=== PATIENT | male | born 1955 ===

== ENCOUNTER 2019-01-17 15:40 | Inpatient (IN) | payer MEDICARE ==
[2019-01-17] MEDS ORDERED: Aspirin 325 mg EC Tablets PO STA (15:58)
[2019-01-17 16:20] LABS: BASO # 0.1 K/uL (0.0-0.2); BASO % 0.7 % (0.0-2.0); EOS # 0.1 K/uL (0.0-0.7); LYMPH # 1.3 K/uL (1.0-4.3); LYMPH % 10.9 % (20.0-40.0); MEAN CELL VOLUME 92.6 fL (80.0-94.0); MEAN CORPUSCULAR HGB CONC 32.4 g/dL (33.0-37.0); MEAN PLATELET VOLUME 8.1 fL (7.2-11.7); MONO # 0.9 K/uL (0.0-0.8); MONO % 7.6 % (0.0-10.0); NEUT # 9.3 K/uL (1.8-7.0); NEUT % 79.8 % (50.0-75.0); NRBC % 0.1 % (0.0-2.0); RBC 4.66 Mil/uL (4.40-5.90); RED CELL DISTRIBUTION WIDTH 15.5 % (11.5-14.5); WHITE BLOOD COUNT 11.6 K/uL (4.8-10.8)
[2019-01-17] MEDS ORDERED: Aspirin 325 mg EC Tablets PO ONE (16:24)
[2019-01-17 16:28] LABS: INR 1.1; PROTHROMBIN TIME 11.5 SECONDS (9.7-12.2)
[2019-01-17 16:32] LABS: ALB/GLOB RATIO 1.3 (1.0-2.1); ALBUMIN 4.3 g/dL (3.5-5.0); BLOOD UREA NITROGEN 24 mg/dL (9-20); CALCIUM 9.2 mg/dl (8.6-10.4); GFR NON-AFRICAN AMERICAN > 60
[2019-01-17 16:33] LABS: ALT/SGPT 28 U/L (21-72); AST/SGOT 32 U/L (17-59)
--- NOTE | 2019-01-17 16:38 | C.PDOC ---
History Of Present Illness Pt is a 63 yr old white male cigarette smoker with a PMH of CAD, acute GA (with stents), DM, HTN, obesity who presents to the ED today c/o left sided chest pain (pressure-like in nature) that started 1 hr prior to arrival to the ED. EMS gave patient SL nitro (and pt also had 325 mg aspirin) and the chest pain went away after receiving the nitroglycerin. The chest pain lasted for 1 hour but is now gone. Pt had an acute GA in May 2018 and had stent placed. In September 2018, patient had another cardiac stent placed. Last episode of chest pain was 2 wks ago and states he had a cardiac cath at [facility]. No SOB today, and no N/V. Patient is usually followed at [facility] by paper cone grader Dr. Song Calderon. I have left a message with his answering service (at 4:36 PM) to call me. Patient also seen in [facility] ED yesterday for bilateral leg pain/swelling and discharged home with a diagnosis of venous insufficiency. PMD: Dr. Song Calderon - [employer] - and cell phone: Time Seen by Provider: 01/17/19 15:58 Chief Complaint (Nursing): Chest Pain Past Medical History Vital Signs: Last Vital Signs Temp 98.3 F 01/17/19 15:45 Pulse 114 H 01/17/19 15:45 Resp 22 01/17/19 15:45 BP 155/65 H 01/17/19 15:45 Pulse Ox 94 L 01/17/19 15:45 Primary Care Provider: Song Calderon III - Medical History PMH: HTN, Peripheral Edema Family History: States: Diabetes - Social History Hx Tobacco Use: Yes Hx Alcohol Use: No Hx Substance Use: No Physical Exam - Physical Exam Appears: Well, Non-toxic, Other (Obese) Skin: Normal Color Head: Atraumatic Eye(s): bilateral: Normal Inspection Nose: Normal Tongue: Normal Appearing Throat: Normal Neck: Normal, Normal ROM Lymphatic: Deferred Chest: Symmetrical Cardiovascular: Rhythm Regular Respiratory: No Accessory Muscle Use, Rhonchi (noted at left lung base), No Wheezing Gastrointestinal/Abdominal: Bowel Sounds, Soft Rectal: Deferred Back: Normal Inspection Male Genital: Normal Inspection Extremity: Bilateral: Other ((+) pitting edema to lower ext bilaterally) Neurological/Psych: Oriented x3, Normal Motor, Normal Sensation ED Course And Treatment - Laboratory Results Result Diagrams: 01/17/19 16:17 01/17/19 16:17 Lab Results: PT 11.5 SECONDS (9.7-12.2) 01/17/19 16:17 INR 1.1 01/17/19 16:17 APTT 32.0 SECONDS (21-34) 01/17/19 16:17 O2 Sat by Pulse Oximetry: 94 Medical Decision Making Medical Decision Making: Initial Impression: Chest pain consider ACS Initial Plan: Will check labs, check EKG and try to reach pt's paper cone grader Dr. Song Calderon Progress Note(s): I discussed the case with his private paper cone grader Dr. Song Calderon (cell phone [phone]). He knows this patient very well. He has a stent in his left main and also in circumflex artery. Patient was being set up for brachi-therapy at [facility] but their cardiac cath was normal. Last cardiac cath approx 2 wks ago was ok. He states he gets admitted frequently for chest pain and always makes troponins. He states that the early marginal branch is "pi nched" on the cardiac cath and thinks that this is the source of his positive troponin. I verbally described his EKG and he states that his EKG has been like this for some time now. I informed him that his troponin today is 0.1610 and he states that is the lowest it has been on him in a while. He recommends giving Brillanta (does not think heparin is necessary) and admitting him for further cardiac monitoring. He states our physicians can feel free to call him with any questions as he knows this pt very well. Admission endorsed to Dr. Sami Latif. 6:10 PM - [employer] Dr. Timmy Willard is at bedside evaluating the patient. Disposition Counseled Patient/Family Regarding: Studies Performed, Diagnosis - Disposition Disposition: HOSPITALIZED Disposition Time: 17:00 Condition: FAIR - Clinical Impression Clinical Impression: Chest pain, Elevated troponin, Obesity, Diabetes Decision To Admit - Pt Status Changed To: Hospital Disposition Of: Inpatient - Admit Certification Admit to Inpatient:: After my assessment, the patient will require hospitalization for at least two midnights. This is because of the severity of symptoms shown, intensity of services needed, and/or the medical risk in this patient being treated as an outpatient. - InPatient: Physician Admission Certification: I certify that this patient requires 2 or more midnights of care for the following reason:: Patient with abnormal EKG and making positive cardiac enzymes. - . Bed Request Type: Telemetry Admitting Physician: Sami Latif Patient Diagnosis: Chest pain, Elevated troponin, Obesity, Diabetes
[2019-01-17 16:47] LABS: B-TYPE NATRIURETIC PEPTIDE 857 pg/mL (0-900)
--- NOTE | 2019-01-17 17:09 | RAD ---
Date of service: 01/17/2019 PROCEDURE: CHEST RADIOGRAPH, 1 VIEW HISTORY: chest pain COMPARISON: None available. FINDINGS: LUNGS: Clear. PLEURA: No pneumothorax or pleural fluid seen. CARDIOVASCULAR: No aortic atherosclerotic calcification present. Normal. OSSEOUS STRUCTURES: No significant abnormalities. VISUALIZED UPPER ABDOMEN: Normal. OTHER FINDINGS: None. IMPRESSION: No active disease.
--- NOTE | 2019-01-17 17:43 | CP.PCM.HP ---
History of Present Illness - History of Present Illness History of Present Illness: H&P for hospitalist Dr. Latif HPI: 63 year old male with PMhx of CAD w/ stents (May 2018 & September 2018), HTN, DM, arthritis presents to ED for chest pain. Pt states he was sitting this morning when he developed pins/needle like chest pain on left side that radiated to left arm, rated 5/10, denies nausea, vomiting, SOB at that time. Pt called EMS, had 1 sublingual nitro with resolution of chest pain. Per ED note and pt cardioloist at [facility] Dr. Calderon, patient has been in several EDs for similar chest pain over the past year with elevated troponins, significantly more elevated than 0.16 currently and has had clean coronaries several times. At time of examination pt reports resolution of chest pain and just states for the last two days hes been just feeling sleep majority of the time. Pt reports compliance with medications and denies illicet drug use. Pt reports normal sleep test a few years. Denies recent travel, reports having a cold like symptoms 2 weeks ago. ROS: Denies headaches, vision changes, SOB, abdominal pain, fevers, chills, diarrhea, constipation, trouble/burining on urination; b/l le swelling PMD: [place] (does not see doctor regularly) PMhx: CAD w/ stents (May 2018 & September 2018), HTN, DM, arthritis Meds: Brilinta 90 BID, aspirin 81 mg daily, lasix 40 mg Po daily, imdur 120 daily, metoprolol tartrate 100 bid, nitroglycerin 0.4sl, ranexa 100 mg daily PShx: CAD w/ 2 sents Allergies: NKDA FHx: Father 76, mother at 83 (unknown causes) SHx: Smokes 5-6 cigarettes/ day for 2 years, denies illicit drug use, denies ETOH Present on Admission - Present on Admission Any Indicators Present on Admission: No History of DVT/PE: No History of Uncontrolled Diabetes: No Urinary Catheter: No Decubitus Ulcer Present: No Review of Systems - Constitutional Constitutional: Daytime Sleepiness. absent: Chills, Headache, Weight Gain, Weight Loss - EENT Eyes: absent: Blurred Vision, Change in Vision - Cardiovascular Cardiovascular: absent: Chest Pain, Chest Pain at Rest, Dyspnea - Respiratory Respiratory: absent: Cough, Dyspnea, Dyspnea on Exertion - Gastrointestinal Gastrointestinal: absent: Bloating, Constipation, Diarrhea - Genitourinary Genitourinary: absent: Change in Urinary Stream, Difficulty Urinating - Musculoskeletal Musculoskeletal: absent: Arthralgias, Joint Swelling - Integumentary Integumentary: Swelling Additional comments: b/l lower extremity swelling - Neurological Neurological: absent: Disequilibrium, Headaches - Psychiatric Psychiatric: absent: Anxiety, Change in Appetite - Endocrine Endocrine: absent: Change in Body Appearance, Deepening of Voice - Hematologic/Lymphatic Hematologic: absent: As Per HPI, Easy Bleeding, Easy Bruising Past Patient History - Past Social History Smoking Status: Current Some Days Smoker - CARDIAC Hx Hypertension: Yes Hx Peripheral Edema: Yes - PSYCHIATRIC Hx Substance Use: No Meds Allergies/Adverse Reactions: Allergies Allergy/AdvReac Type Severity Reaction Status Date / Time No Known Allergies Allergy Unverified 01/17/19 15:49 Physical Exam - Constitutional Appears: Non-toxic, No Acute Distress Additional comments: pt laying bed, NAD, sleeping w/ loud snoring, loose dentures in mouth, tounge retracted - Head Exam Head Exam: ATRAUMATIC, NORMAL INSPECTION - Eye Exam Eye Exam: EOMI, Normal appearance - ENT Exam ENT Exam: Mucous Membranes Moist Additional comments: lose dentures in mouth - Neck Exam Neck exam: Positive for: Full Rom, Thyromegaly. Negative for: Tenderness Additional comments: ? thyrodmegaly - Respiratory Exam Respiratory Exam: Decreased Breath Sounds. absent: Rales, Rhonchi, Wheezes - Cardiovascular Exam Cardiovascular Exam: +S1, +S2. absent: Systolic Murmur - GI/Abdominal Exam GI & Abdominal Exam: Normal Bowel Sounds, Soft. absent: Distended, Firm, Guarding, Hernia - Extremities Exam Extremities exam: Positive for: full ROM, pedal edema. Negative for: calf tenderness, tenderness Additional comments: 1+ pitting edema - Back Exam Back exam: absent: CVA tenderness (L), CVA tenderness (R) - Neurological Exam Neurological exam: Alert, Oriented x3 - Psychiatric Exam Additional comments: extremely sleep unable to assess - Skin Skin Exam: Dry, Intact, Normal Color, Warm Results - Vital Signs Recent Vital Signs: Last Vital Signs Temp 98.3 F 01/17/19 15:45 Pulse 106 H 01/17/19 17:35 Resp 13 01/17/19 17:35 BP 126/45 L 01/17/19 17:35 Pulse Ox 96 01/17/19 17:35 - Labs Result Diagrams: 01/17/19 16:17 01/17/19 16:17 Labs: Laboratory Results - last 24 hr 01/17/19 01/17/19 01/17/19 16:17 16:17 16:17 WBC 11.6 H RBC 4.66 Hgb 14.0 Hct 43.2 MCV 92.6 MCH 30.0 MCHC 32.4 L RDW 15.5 H Plt Count 283 MPV 8.1 Neut % (Auto) 79.8 H Lymph % (Auto) 10.9 L [place] % (Auto) 7.6 Eos % (Auto) 1.0 Baso % (Auto) 0.7 Neut # (Auto) 9.3 H Lymph # (Auto) 1.3 [place] # (Auto) 0.9 H Eos # (Auto) 0.1 Baso # (Auto) 0.1 PT 11.5 INR 1.1 APTT 32.0 Sodium 139 Potassium 3.6 Chloride 95 L Carbon Dioxide 34 H Anion Gap 14 BUN 24 H Creatinine 0.7 L Est GFR ( Amer) > 60 Est GFR (Non-Af Amer) > 60 Random Glucose 181 H Calcium 9.2 Total Bilirubin 0.6 AST 32 ALT 28 Alkaline Phosphatase 82 Troponin I 0.1610 H* NT-Pro-B Natriuret Pep 857 Total Protein 7.7 Albumin 4.3 Globulin 3.4 Albumin/Globulin Ratio 1.3 Assessment & Plan - Assessment and Plan (Free Text) Assessment: 63M w/ PMhx of CAD w/ stents, HTN, DM, presents to ED for chest pain, found to be NSTEMI Plan: NSTEMI CAD w/ stents - elevated troponin @ 0.160; ekg: sinus tachy @ 104, rbbb, left anterior fasicular, widen QRS - repeat franko & ekg X 2 @ 2200 & 400 - heparin drip - f/u CTA PE for possible PE - f/u cardio recs, Dr. Willard - f/u echo - f/u UDS - f/u lipid panel ? Sleep Apnea - O2 Sat 92% on NC 3LPM, obese gentleman w/ loud snoring - Bipap @ night time 12/6 Fio2 40% - F/u pulm, Dr. Luis recs - F/u TSH/Free T4 History of HTN - hold home medication metoprolol 100 mg BID until UDS - c/w lasix 40 mg PO daily History of Diabetes - Blood sugars 180s - F/u HgA1C - Accuchecks ACHS - Hypoglycemia protocol PPx DVT: on heparin drip for STEMI GI: Protonix 40 mg IVP daily -
[2019-01-17 18:07] LABS: ABG ALLEN TEST PO; ARTERIAL BLOOD GAS HCO3 29.1 mmol/L (21-28); ARTERIAL BLOOD GAS O2 SAT 98.8 % (95-98); ARTERIAL BLOOD GAS PCO2 46 mm/Hg (35-45); ARTERIAL BLOOD GAS PH 7.43 (7.35-7.45); ARTERIAL BLOOD GAS PO2 107 mm/Hg (80-100); ARTERIAL BLOOD GAS TCO2 31.9 mmol/L (22-28)
[2019-01-17 18:26] LABS: BARBITURATES, UR NEGATIVE (NEGATIVE); BENZODIAZEPINES, UR NEGATIVE (NEGATIVE); OPIATES, UR NEGATIVE (NEGATIVE); PHENCYCLIDINE, UR NEGATIVE (NEGATIVE)
[2019-01-17] MEDS ORDERED: Glucagon Recombinant 1 mg Inj IM PRN (18:36)
[2019-01-17] MEDS ORDERED: Dextrose 50% SYRINGE Inj (50 ml) IV PRN (18:36)
[2019-01-17] MEDS ORDERED: Iodixanol 320 MG/ML 100 ML BOTTLE IV ONE (18:37)
--- NOTE | 2019-01-17 20:36 | CP.PCM.CON ---
History of Present Illness - History of Present Illness History of Present Illness: CC: Chest Pain and elevated Troponin HPI: 63 year old male with PMhx of CAD w/ stents (May 2018 & September 2018), HTN, DM, arthritis presents to ED for chest pain. Pt states he was sitting this morning when he developed pins/needle like chest pain on left side that radiated to left arm, rated 5/10, denies nausea, vomiting, SOB at that time. Pt called EMS, had 1 sublingual nitro with resolution of chest pain. Per ED note and pt cardioloist at [facility] Dr. Calderon, patient has been in several EDs for similar chest pain over the past year with elevated troponins, significantly more elevated than 0.16 currently and has had clean coronaries several times. At time of examination pt reports resolution of chest pain and just states for the last two days hes been just feeling sleep majority of the time. Pt reports compliance with medications and denies illicet drug use. Pt reports normal sleep test a few years. Denies recent travel, reports having a cold like symptoms 2 weeks ago. ROS: Denies headaches, vision changes, SOB, abdominal pain, fevers, chills, diarrhea, constipation, trouble/burining on urination; b/l le swelling PMD: [place] (does not see doctor regularly) PMhx: CAD w/ stents (May 2018 & September 2018), HTN, DM, arthritis Meds: Brilinta 90 BID, aspirin 81 mg daily, lasix 40 mg Po daily, imdur 120 daily, metoprolol tartrate 100 bid, nitroglycerin 0.4sl, ranexa 100 mg daily PShx: CAD w/ 2 sents Allergies: NKDA FHx: Father 76, mother at 83 (unknown causes) SHx: Smokes 5-6 cigarettes/ day for 2 years, denies illicit drug use, denies ETOH Present on Admission - Present on Admission Any Indicators Present on Admission: No History of DVT/PE: No History of Uncontrolled Diabetes: No Urinary Catheter: No Decubitus Ulcer Present: No Review of Systems - Constitutional Constitutional: Daytime Sleepiness. absent: Chills, Headache, Weight Gain, Weight Loss - EENT Eyes: absent: Blurred Vision, Change in Vision - Cardiovascular Cardiovascular: absent: Chest Pain, Chest Pain at Rest, Dyspnea - Respiratory Respiratory: absent: Cough, Dyspnea, Dyspnea on Exertion - Gastrointestinal Gastrointestinal: absent: Bloating, Constipation, Diarrhea - Genitourinary Genitourinary: absent: Change in Urinary Stream, Difficulty Urinating - Musculoskeletal Musculoskeletal: absent: Arthralgias, Joint Swelling - Integumentary Integumentary: Swelling Additional comments: b/l lower extremity swelling - Neurological Neurological: absent: Disequilibrium, Headaches - Psychiatric Psychiatric: absent: Anxiety, Change in Appetite - Endocrine Endocrine: absent: Change in Body Appearance, Deepening of Voice - Hematologic/Lymphatic Hematologic: absent: As Per HPI, Easy Bleeding, Easy Bruising Physical Exam - Constitutional Appears: Non-toxic, No Acute Distress Additional comments: pt laying bed, NAD, sleeping w/ loud snoring, loose dentures in mouth, tounge retracted - Head Exam Head Exam: ATRAUMATIC, NORMAL INSPECTION - Eye Exam Eye Exam: EOMI, Normal appearance - ENT Exam ENT Exam: Mucous Membranes Moist Additional comments: lose dentures in mouth - Neck Exam Neck exam: Positive for: Full Rom, Thyromegaly. Negative for: Tenderness Additional comments: ? thyrodmegaly - Respiratory Exam Respiratory Exam: Decreased Breath Sounds. absent: Rales, Rhonchi, Wheezes - Cardiovascular Exam Cardiovascular Exam: +S1, +S2. absent: Systolic Murmur - GI/Abdominal Exam GI & Abdominal Exam: Normal Bowel Sounds, Soft. absent: Distended, Firm, Guarding, Hernia - Extremities Exam Extremities exam: Positive for: full ROM, pedal edema. Negative for: calf tenderness, tenderness Additional comments: 1+ pitting edema - Back Exam Back exam: absent: CVA tenderness (L), CVA tenderness (R) - Neurological Exam Neurological exam: Alert, Oriented x3 - Psychiatric Exam Additional comments: extremely sleep unable to assess - Skin Skin Exam: Dry, Intact, Normal Color, Warm Past Patient History - Past Social History Smoking Status: Current Some Days Smoker - CARDIAC Hx Hypertension: Yes Hx Peripheral Edema: Yes - PSYCHIATRIC Hx Substance Use: No Meds Allergies/Adverse Reactions: Allergies Allergy/AdvReac Type Severity Reaction Status Date / Time No Known Allergies Allergy Unverified 01/17/19 15:49 - Medications Medications: Current Medications Dextrose (Dextrose 50% Inj) 0 ml IV STAT PRN; Protocol PRN Reason: Hypoglycemia Protocol Dextrose (Glutose 15) 0 gm PO ONCE PRN; Protocol PRN Reason: Hypoglycemia Protocol Furosemide (Lasix) 40 mg PO DAILY [facility] Glucagon (Glucagen Diagnostic Kit) 0 mg IM STAT PRN; Protocol PRN Reason: Hypoglycemia Protocol Home Med (Aspirin) 81 mg PO DAILY [facility] Heparin Sodium/Sodium Chloride (Heparin 42141 Units/250ml 1/2 Normal Saline) 25,000 units in 250 mls @ 12.955 mls/hr IV .[id number] PRN; Protocol PRN Reason: ADJUST RATE PER PROTOCOL Dextrose (Dextrose 5% In Water 1000 Ml) 1,000 mls @ 0 mls/hr IV .Q0M PRN; Protocol PRN Reason: Hypoglycemia Protocol Insulin Aspart (Novolog) 0 unit SC ACHS [facility]; Protocol Lisinopril (Zestril) 2.5 mg PO DAILY [facility] Pantoprazole Sodium (Protonix Inj) 40 mg IVP DAILY [facility] Ticagrelor (Brilinta) 90 mg PO BID [facility] Results - Vital Signs Recent Vital Signs: Last Vital Signs Temp 98.3 F 01/17/19 15:45 Pulse 106 H 01/17/19 17:35 Resp 13 01/17/19 17:35 BP 126/45 L 01/17/19 17:35 Pulse Ox 94 L 01/17/19 18:48 - Labs Result Diagrams: 01/17/19 16:17 01/17/19 16:17 Labs: Laboratory Results - last 24 hr 01/17/19 01/17/19 01/17/19 16:17 16:17 16:17 WBC 11.6 H RBC 4.66 Hgb 14.0 Hct 43.2 MCV 92.6 MCH 30.0 MCHC 32.4 L RDW 15.5 H Plt Count 283 MPV 8.1 Neut % (Auto) 79.8 H Lymph % (Auto) 10.9 L [place] % (Auto) 7.6 Eos % (Auto) 1.0 Baso % (Auto) 0.7 Neut # (Auto) 9.3 H Lymph # (Auto) 1.3 [place] # (Auto) 0.9 H Eos # (Auto) 0.1 Baso # (Auto) 0.1 PT 11.5 INR 1.1 APTT 32.0 Puncture Site pCO2 pO2 HCO3 ABG pH ABG Total CO2 ABG O2 Saturation ABG Base Excess Janusz Test ABG Potassium A-a O2 Difference Respiratory Index Glucose Lactate Liter Flow FiO2 Sodium 139 Potassium 3.6 Chloride 95 L Carbon Dioxide 34 H Anion Gap 14 BUN 24 H Creatinine 0.7 L Est GFR ( Amer) > 60 Est GFR (Non-Af Amer) > 60 POC Glucose (mg/dL) Random Glucose 181 H Calcium 9.2 Total Bilirubin 0.6 AST 32 ALT 28 Alkaline Phosphatase 82 Troponin I 0.1610 H* NT-Pro-B Natriuret Pep 857 Total Protein 7.7 Albumin 4.3 Globulin 3.4 Albumin/Globulin Ratio 1.3 Arterial Blood Potassium Urine Opiates Screen Urine Methadone Screen Ur Barbiturates Screen Ur Phencyclidine Scrn Ur Amphetamines Screen U Benzodiazepines Scrn U Oth Cocaine Metabols U Cannabinoids Screen 01/17/19 01/17/19 01/17/19 18:02 18:04 19:27 WBC RBC Hgb Hct MCV MCH MCHC RDW Plt Count MPV Neut % (Auto) Lymph % (Auto) [place] % (Auto) Eos % (Auto) Baso % (Auto) Neut # (Auto) Lymph # (Auto) [place] # (Auto) Eos # (Auto) Baso # (Auto) PT INR APTT Puncture Site Lr pCO2 46 H pO2 107 H HCO3 29.1 H ABG pH 7.43 ABG Total CO2 31.9 H ABG O2 Saturation 98.8 H ABG Base Excess 5.3 H Janusz Test Po ABG Potassium 3.0 L A-a O2 Difference 35.0 Respiratory Index 0.3 Glucose 211 H Lactate 1.7 Liter Flow 2.0 FiO2 28.0 Sodium 136.0 Potassium Chloride 102.0 Carbon Dioxide Anion Gap BUN Creatinine Est GFR ( Amer) Est GFR (Non-Af Amer) POC Glucose (mg/dL) 181 H Random Glucose Calcium Total Bilirubin AST ALT Alkaline Phosphatase Troponin I NT-Pro-B Natriuret Pep Total Protein Albumin Globulin Albumin/Globulin Ratio Arterial Blood Potassium 3.0 L Urine Opiates Screen Negative Urine Methadone Screen Negative Ur Barbiturates Screen Negative Ur Phencyclidine Scrn Negative Ur Amphetamines Screen Negative U Benzodiazepines Scrn Negative U Oth Cocaine Metabols Negative U Cannabinoids Screen Negative Assessment & Plan - Assessment and Plan (Free Text) Assessment: 63M w/ PMhx of CAD w/ stents, HTN, DM, presents to ED for chest pain, found to be NSTEMI Plan: NSTEMI CAD w/ stents - elevated troponin @ 0.160; ekg: sinus tachy @ 104, rbbb, left anterior fasicular, widen QRS - repeat franko & ekg X 2 @ 2200 & 400 - heparin drip - f/u CTA PE for possible PE - f/u echo - f/u UDS - f/u lipid panel ? Sleep Apnea - O2 Sat 92% on NC 3LPM, obese gentleman w/ loud snoring - Bipap @ night time 12/6 Fio2 40% - F/u pulm, Dr. Smith recs - F/u TSH/Free T4 History of HTN - hold home medication metoprolol 100 mg BID until UDS - c/w lasix 40 mg PO daily History of Diabetes - Blood sugars 180s - F/u HgA1C - Accuchecks ACHS - Hypoglycemia protocol PPx DVT: on heparin drip for NSTEMI GI: Protonix 40 mg IVP daily Will follow ECHO. 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
[2019-01-17] MEDS: (Novolog) Insulin Aspart, Recombinant 100 u/ml 10 ml vial SC SCH (20:45)
[2019-01-17] MEDS ORDERED: (Novolog) Insulin Aspart, Recombinant 100 u/ml 10 ml vial ONE (20:55)
[2019-01-18 00:21] LABS: CK-MB 28.2 ng/mL (0.0-3.38); TROPONIN I 5.45 ng/mL (0.00-0.120)
[2019-01-18] MEDS: Heparin25000 units/250ml 1/2NS 25,000 UNITS/250 ML BAG IV PRN ×2 (01:02→21:56)
--- NOTE | 2019-01-18 01:18 | CP.PCM.PCO ---
Physician Communication Note - Physician Communication Note Physician Communication Note: Heparin drip never started in ED despite order
[2019-01-18 03:41] LABS: CK-MB 27.5 ng/mL (0.0-3.38); TROPONIN I 5.86 ng/mL (0.00-0.120)
[2019-01-18] MEDS: (Novolog) Insulin Aspart, Recombinant 100 u/ml 10 ml vial SC SCH ×4 (07:17→22:01)
--- NOTE | 2019-01-18 10:14 | CP.PCM.PN ---
Objective - Vital Signs/Intake and Output Vital Signs (last 24 hours): Temp Pulse Resp BP Pulse Ox 98.1 F 86 20 162/76 H 95 01/18/19 08:00 01/18/19 08:00 01/18/19 08:00 01/18/19 08:00 01/18/19 08:00 Intake and Output: 01/18/19 01/18/19 06:59 18:59 Intake Total 75 Balance 75 - Medications Medications: Current Medications Aspirin (Aspirin Chewable) 81 mg PO DAILY [facility] Dextrose (Dextrose 50% Inj) 0 ml IV STAT PRN; Protocol PRN Reason: Hypoglycemia Protocol Dextrose (Glutose 15) 0 gm PO ONCE PRN; Protocol PRN Reason: Hypoglycemia Protocol Furosemide (Lasix) 40 mg PO DAILY [facility] Glucagon (Glucagen Diagnostic Kit) 0 mg IM STAT PRN; Protocol PRN Reason: Hypoglycemia Protocol Heparin Sodium/Sodium Chloride (Heparin 75847 Units/250ml 1/2 Normal Saline) 25,000 units in 250 mls @ 12.955 mls/hr IV .[id number] PRN; Protocol PRN Reason: ADJUST RATE PER PROTOCOL Last Titration: 01/18/19 09:18 Dose: 14 units/kg/hr, 15.114 mls/hr Dextrose (Dextrose 5% In Water 1000 Ml) 1,000 mls @ 0 mls/hr IV .Q0M PRN; Pr otocol PRN Reason: Hypoglycemia Protocol Insulin Aspart (Novolog) 0 unit SC ACHS [facility]; Protocol Last Admin: 01/18/19 07:17 Dose: Not Given Lisinopril (Zestril) 2.5 mg PO DAILY [facility] Pantoprazole Sodium (Protonix Inj) 40 mg IVP DAILY [facility] Ticagrelor (Brilinta) 90 mg PO BID [facility] - Labs Labs: 01/17/19 16:17 01/17/19 16:17 PT 11.5 SECONDS (9.7-12.2) 01/17/19 16:17 INR 1.1 01/17/19 16:17 APTT 42.0 SECONDS (21-34) H D 01/18/19 07:09
--- NOTE | 2019-01-18 10:23 | CT ---
Date of service: 01/18/2019 PROCEDURE: CT Chest with contrast (Pulmonary Angiogram) HISTORY: Low 02 sat, elevated trop COMPARISON: None available. TECHNIQUE: Axial computed tomography images were obtained of the chest in the pulmonary arterial phase of enhancement. Coronal and sagittal reformatted images were created and reviewed. Intravenous contrast dose: Radiation dose: Total exam DLP = 574.54 mGy-cm. This CT exam was performed using one or more of the following dose reduction techniques: Automated exposure control, adjustment of the mA and/or kV according to patient size, and/or use of iterative reconstruction technique. FINDINGS: PULMONARY ARTERIES: Visualized pulmonary trunk, right and left main, segmental and proximal subsegmental branches of the pulmonary arteries appear relatively well opacified with no definitive filling defects seen to suggest acute central pulmonary embolus. Pulmonary trunk measures approximately 2.54 cm. AORTA: No acute findings. No thoracic aortic aneurysm. Ascending thoracic aorta measures approximately 2.9 cm and descending thoracic aorta measures approximately 2.5 cm. Minor aortic atherosclerotic calcification or mural plaque present. LUNGS: Mild passive-dependent type atelectasis both posterior lung bases.. Minimal linear scarring seen in the left lingular region.. PLEURAL SPACES: Unremarkable. No effusion or pneumothorax. HEART: Heart appears mildly enlarged. No significant pericardial effusion. LYMPH NODES: There are a few small nonspecific mediastinal lymph nodes the largest right paratracheal lymph node measuring approximately 14 mm. Few tiny hilar lymph nodes are present.. BONES, CHEST WALL: Mild multilevel degenerative spondylosis of the thoracic spine. OTHER FINDINGS: Unremarkable. IMPRESSION: No evidence of acute central pulmonary embolus. Cardiomegaly. Minor passive/dependent type atelectasis both posterior lung bases.
[2019-01-18 11:46] LABS: HEMOGLOBIN 12.9 g/dL (12.0-18.0); MEAN CORPUSCULAR HEMOGLOBIN 31.3 pg (27.0-31.0); MEAN CORPUSCULAR HGB CONC 33.7 g/dL (33.0-37.0); RBC 4.12 Mil/uL (4.40-5.90); RED CELL DISTRIBUTION WIDTH 15.2 % (11.5-14.5); WHITE BLOOD COUNT 9.1 K/uL (4.8-10.8)
--- NOTE | 2019-01-18 11:59 | CP.PCM.CON ---
History of Present Illness - History of Present Illness History of Present Illness: reason for consultation: nocturnal snoring and excessive sleepiness during the daytime 63 year-old male with history of coronary artery disease status post stent placement, diabetes, hypertension, long history of smoking presented to emergency room complaining of chest pain radiating to the left arm. Patient found to have elevated troponins. Patient also complaining of nocturnal snoring, frequent awakening at night and feel tired sleepy during the daytime. Denies cough, denies fever chills. Also complaining of a lateral leg swelling PMhx: CAD w/ stents (May 2018 & September 2018), HTN, DM, arthritis Meds: Brilinta 90 BID, aspirin 81 mg daily, lasix 40 mg Po daily, imdur 120 daily, metoprolol tartrate 100 bid, nitroglycerin 0.4sl, ranexa 100 mg daily PShx: CAD w/ 2 sents Allergies: NKDA FHx: Father 76, mother at 83 (unknown causes) SHx: Smokes 5-6 cigarettes/ day for 2 years, denies illicit drug use, denies ETOH Review of Systems - Review of Systems All systems: reviewed and no additional remarkable complaints except (chest pain, nocturnal snoring) Past Patient History - Past Medical History & Family History Past Medical History?: Yes - Past Social History Smoking Status: Current Some Days Smoker - CARDIAC Hx Hypertension: Yes Hx Peripheral Edema: Yes - MUSCULOSKELETAL/RHEUMATOLOGICAL Hx Falls: No - PSYCHIATRIC Hx Substance Use: No - ANESTHESIA Hx Anesthesia: Yes Hx Anesthesia Reactions: No Meds Allergies/Adverse Reactions: Allergies Allergy/AdvReac Type Severity Reaction Status Date / Time No Known Allergies Allergy Unverified 01/17/19 15:49 - Medications Medications: Current Medications Aspirin (Aspirin Chewable) 81 mg PO DAILY [facility] Last Admin: 01/18/19 11:29 Dose: 81 mg Dextrose (Dextrose 50% Inj) 0 ml IV STAT PRN; Protocol PRN Reason: Hypoglycemia Protocol Dextrose (Glutose 15) 0 gm PO ONCE PRN; Protocol PRN Reason: Hypoglycemia Protocol Furosemide (Lasix) 40 mg PO DAILY [facility] Last Admin: 01/18/19 11:32 Dose: 40 mg Glucagon (Glucagen Diagnostic Kit) 0 mg IM STAT PRN; Protocol PRN Reason: Hypoglycemia Protocol Heparin Sodium/Sodium Chloride (Heparin 41300 Units/250ml 1/2 Normal Saline) 25,000 units in 250 mls @ 12.955 mls/hr IV .[id number] PRN; Protocol PRN Reason: ADJUST RATE PER PROTOCOL Last Titration: 01/18/19 09:18 Dose: 14 units/kg/hr, 15.114 mls/hr Dextrose (Dextrose 5% In Water 1000 Ml) 1,000 mls @ 0 mls/hr IV .Q0M PRN; Protocol PRN Reason: Hypoglycemia Protocol Insulin Aspart (Novolog) 0 unit SC ACHS [facility]; Protocol Last Admin: 01/18/19 07:17 Dose: Not Given Lisinopril (Zestril) 2.5 mg PO DAILY [facility] Last Admin: 01/18/19 11:29 Dose: 2.5 mg Pantoprazole Sodium (Protonix Inj) 40 mg IVP DAILY [facility] Last Admin: 01/18/19 11:29 Dose: 40 mg Ticagrelor (Brilinta) 90 mg PO BID [facility] Last Admin: 01/18/19 11:29 Dose: 90 mg Physical Exam - Head Exam Head Exam: ATRAUMATIC, NORMOCEPHALIC - ENT Exam ENT Exam: Mucous Membranes Moist - Neck Exam Neck exam: Positive for: Normal Inspection - Respiratory Exam Respiratory Exam: Clear to Auscultation Bilateral - Cardiovascular Exam Cardiovascular Exam: REGULAR RHYTHM - GI/Abdominal Exam GI & Abdominal Exam: Normal Bowel Sounds, Soft - Extremities Exam Extremities exam: Positive for: pedal edema - Neurological Exam Neurological exam: Alert, Oriented x3 Results - Vital Signs Recent Vital Signs: Last Vital Signs Temp 98.1 F 01/18/19 08:00 Pulse 86 01/18/19 08:00 Resp 20 01/18/19 08:00 BP 153/72 H 01/18/19 11:32 Pulse Ox 95 01/18/19 08:00 - Labs Result Diagrams: 01/18/19 11:38 01/18/19 11:38 Labs: Laboratory Results - last 24 hr 01/17/19 01/17/19 01/17/19 16:17 16:17 16:17 WBC 11.6 H RBC 4.66 Hgb 14.0 Hct 43.2 MCV 92.6 MCH 30.0 MCHC 32.4 L RDW 15.5 H Plt Count 283 MPV 8.1 Neut % (Auto) 79.8 H Lymph % (Auto) 10.9 L Garfield % (Auto) 7.6 Eos % (Auto) 1.0 Baso % (Auto) 0.7 Neut # (Auto) 9.3 H Lymph # (Auto) 1.3 Garfield # (Auto) 0.9 H Eos # (Auto) 0.1 Baso # (Auto) 0.1 PT 11.5 INR 1.1 APTT 32.0 Puncture Site pCO2 pO2 HCO3 ABG pH ABG Total CO2 ABG O2 Saturation ABG Base Excess Janusz Test ABG Potassium A-a O2 Difference Respiratory Index Glucose Lactate Liter Flow FiO2 Sodium 139 Potassium 3.6 Chloride 95 L Carbon Dioxide 34 H Anion Gap 14 BUN 24 H Creatinine 0.7 L Est GFR ( Amer) > 60 Est GFR (Non-Af Amer) > 60 POC Glucose (mg/dL) Random Glucose 181 H Hemoglobin A1c Calcium 9.2 Total Bilirubin 0.6 AST 32 ALT 28 Alkaline Phosphatase 82 Total Creatine Kinase CK-MB (Mass) Troponin I 0.1610 H* NT-Pro-B Natriuret Pep 857 Total Protein 7.7 Albumin 4.3 Globulin 3.4 Albumin/Globulin Ratio 1.3 Triglycerides Cholesterol LDL Cholesterol Direct HDL Cholesterol Free T4 TSH 3rd Generation Arterial Blood Potassium Urine Opiates Screen Urine Methadone Screen Ur Barbiturates Screen Ur Phencyclidine Scrn Ur Amphetamines Screen U Benzodiazepines Scrn U Oth Cocaine Metabols U Cannabinoids Screen 01/17/19 01/17/19 01/17/19 18:02 18:04 19:27 WBC RBC Hgb Hct MCV MCH MCHC RDW Plt Count MPV Neut % (Auto) Lymph % (Auto) Garfield % (Auto) Eos % (Auto) Baso % (Auto) Neut # (Auto) Lymph # (Auto) Garfield # (Auto) Eos # (Auto) Baso # (Auto) PT INR APTT Puncture Site Lr pCO2 46 H pO2 107 H HCO3 29.1 H ABG pH 7.43 ABG Total CO2 31.9 H ABG O2 Saturation 98.8 H ABG Base Excess 5.3 H Janusz Test Po ABG Potassium 3.0 L A-a O2 Difference 35.0 Respiratory Index 0.3 Glucose 211 H Lactate 1.7 Liter Flow 2.0 FiO2 28.0 Sodium 136.0 Potassium Chloride 102.0 Carbon Dioxide Anion Gap BUN Creatinine Est GFR ( Amer) Est GFR (Non-Af Amer) POC Glucose (mg/dL) 181 H Random Glucose Hemoglobin A1c Calcium Total Bilirubin AST ALT Alkaline Phosphatase Total Creatine Kinase CK-MB (Mass) Troponin I NT-Pro-B Natriuret Pep Total Protein Albumin Globulin Albumin/Globulin Ratio Triglycerides Cholesterol LDL Cholesterol Direct HDL Cholesterol Free T4 TSH 3rd Generation Arterial Blood Potassium 3.0 L Urine Opiates Screen Negative Urine Methadone Screen Negative Ur Barbiturates Screen Negative Ur Phencyclidine Scrn Negative Ur Amphetamines Screen Negative U Benzodiazepines Scrn Negative U Oth Cocaine Metabols Negative U Cannabinoids Screen Negative 01/17/19 01/17/19 01/18/19 23:51 23:57 03:12 WBC RBC Hgb Hct MCV MCH MCHC RDW Plt Count MPV Neut % (Auto) Lymph % (Auto) Garfield % (Auto) Eos % (Auto) Baso % (Auto) Neut # (Auto) Lymph # (Auto) Garfield # (Auto) Eos # (Auto) Baso # (Auto) PT INR APTT Puncture Site pCO2 pO2 HCO3 ABG pH ABG Total CO2 ABG O2 Saturation ABG Base Excess Janusz Test ABG Potassium A-a O2 Difference Respiratory Index Glucose Lactate Liter Flow FiO2 Sodium Potassium Chloride Carbon Dioxide Anion Gap BUN Creatinine Est GFR ( Amer) Est GFR (Non-Af Amer) POC Glucose (mg/dL) 212 H Random Glucose Hemoglobin A1c Calcium Total Bilirubin AST ALT Alkaline Phosphatase Total Creatine Kinase 294 H 309 H CK-MB (Mass) 28.2 H 27.5 H Troponin I 5.4500 H* 5.8600 H* NT-Pro-B Natriuret Pep Total Protein Albumin Globulin Albumin/Globulin Ratio Triglycerides Cholesterol LDL Cholesterol Direct HDL Cholesterol Free T4 TSH 3rd Generation Arterial Blood Potassium Urine Opiates Screen Urine Methadone Screen Ur Barbiturates Screen Ur Phencyclidine Scrn Ur Amphetamines Screen U Benzodiazepines Scrn U Oth Cocaine Metabols U Cannabinoids Screen 01/18/19 01/18/19 01/18/19 06:09 07:09 07:09 WBC RBC Hgb Hct MCV MCH MCHC RDW Plt Count MPV Neut % (Auto) Lymph % (Auto) Garfield % (Auto) Eos % (Auto) Baso % (Auto) Neut # (Auto) Lymph # (Auto) Garfield # (Auto) Eos # (Auto) Baso # (Auto) PT INR APTT Puncture Site pCO2 pO2 HCO3 ABG pH ABG Total CO2 ABG O2 Saturation ABG Base Excess Janusz Test ABG Potassium A-a O2 Difference Respiratory Index Glucose Lactate Liter Flow FiO2 Sodium Potassium Chloride Carbon Dioxide Anion Gap BUN Creatinine Est GFR ( Amer) Est GFR (Non-Af Amer) POC Glucose (mg/dL) 150 H Random Glucose Hemoglobin A1c 7.6 H Calcium Total Bilirubin AST ALT Alkaline Phosphatase Total Creatine Kinase CK-MB (Mass) Troponin I NT-Pro-B Natriuret Pep Total Protein Albumin Globulin Albumin/Globulin Ratio Triglycerides 113 Cholesterol 157 LDL Cholesterol Direct 112 HDL Cholesterol 31 Free T4 TSH 3rd Generation 0.78 Arterial Blood Potassium Urine Opiates Screen Urine Methadone Screen Ur Barbiturates Screen Ur Phencyclidine Scrn Ur Amphetamines Screen U Benzodiazepines Scrn U Oth Cocaine Metabols U Cannabinoids Screen 01/18/19 01/18/19 01/18/19 07:09 07:09 11:10 WBC RBC Hgb Hct MCV MCH MCHC RDW Plt Count MPV Neut % (Auto) Lymph % (Auto) Garfield % (Auto) Eos % (Auto) Baso % (Auto) Neut # (Auto) Lymph # (Auto) Garfield # (Auto) Eos # (Auto) Baso # (Auto) PT INR APTT 42.0 H D Puncture Site pCO2 pO2 HCO3 ABG pH ABG Total CO2 ABG O2 Saturation ABG Base Excess Janusz Test ABG Potassium A-a O2 Difference Respiratory Index Glucose Lactate Liter Flow FiO2 Sodium Potassium Chloride Carbon Dioxide Anion Gap BUN Creatinine Est GFR ( Amer) Est GFR (Non-Af Amer) POC Glucose (mg/dL) 201 H Random Glucose Hemoglobin A1c Calcium Total Bilirubin AST ALT Alkaline Phosphatase Total Creatine Kinase CK-MB (Mass) Troponin I NT-Pro-B Natriuret Pep Total Protein Albumin Globulin Albumin/Globulin Ratio Triglycerides Cholesterol LDL Cholesterol Direct HDL Cholesterol Free T4 1.02 TSH 3rd Generation Arterial Blood Potassium Urine Opiates Screen Urine Methadone Screen Ur Barbiturates Screen Ur Phencyclidine Scrn Ur Amphetamines Screen U Benzodiazepines Scrn U Oth Cocaine Metabols U Cannabinoids Screen 01/18/19 11:38 WBC 9.1 RBC 4.12 L Hgb 12.9 Hct 38.3 MCV 93.0 MCH 31.3 H MCHC 33.7 RDW 15.2 H Plt Count 274 MPV 8.0 Neut % (Auto) Lymph % (Auto) Garfield % (Auto) Eos % (Auto) Baso % (Auto) Neut # (Auto) Lymph # (Auto) Garfield # (Auto) Eos # (Auto) Baso # (Auto) PT INR APTT Puncture Site pCO2 pO2 HCO3 ABG pH ABG Total CO2 ABG O2 Saturation ABG Base Excess Janusz Test ABG Potassium A-a O2 Difference Respiratory Index Glucose Lactate Liter Flow FiO2 Sodium Potassium Chloride Carbon Dioxide Anion Gap BUN Creatinine Est GFR ( Amer) Est GFR (Non-Af Amer) POC Glucose (mg/dL) Random Glucose Hemoglobin A1c Calcium Total Bilirubin AST ALT Alkaline Phosphatase Total Creatine Kinase CK-MB (Mass) Troponin I NT-Pro-B Natriuret Pep Total Protein Albumin Globulin Albumin/Globulin Ratio Triglycerides Cholesterol LDL Cholesterol Direct HDL Cholesterol Free T4 TSH 3rd Generation Arterial Blood Potassium Urine Opiates Screen Urine Methadone Screen Ur Barbiturates Screen Ur Phencyclidine Scrn Ur Amphetamines Screen U Benzodiazepines Scrn U Oth Cocaine Metabols U Cannabinoids Screen Assessment & Plan (1) PERRI (obstructive sleep apnea) Status: Acute Comment: sleep study as outpatient. CPAP at night of 10 cm water. Diuretics. Cardiac workup. Patient advised to quit smoking (2) Chest pain Status: Acute (3) Obesity Status: Acute
[2019-01-18 12:15] LABS: ALB/GLOB RATIO 1.3 (1.0-2.1); ALBUMIN 3.8 g/dL (3.5-5.0); ALT/SGPT 27 U/L (21-72); AST/SGOT 59 U/L (17-59); BLOOD UREA NITROGEN 23 mg/dL (9-20); GFR NON-AFRICAN AMERICAN > 60
[2019-01-18] MEDS ORDERED: Glucagon Recombinant 1 mg Inj IM PRN (12:27)
[2019-01-18] MEDS ORDERED: Dextrose 50% SYRINGE Inj (50 ml) IV PRN (12:27)
[2019-01-18] MEDS ORDERED: (Novolin R) Insulin Human Regular 100 units/ml vial SC SCH (16:30)
--- NOTE | 2019-01-18 17:52 | CP.PCM.PN ---
<Rhett Antonio - Last Filed: 01/18/19 17:45> Subjective - Date & Time of Evaluation Date of Evaluation: 01/18/19 Time of Evaluation: 17:54 - Subjective Subjective: PGY-[address] Blount Patient seen and examined at bedside. No acute events overnight. Patient tolerating NC O2 in no acute distress with CPAP at night. Denies chest pain, headache, dizziness, palpitations, radiating pain. Objective - Vital Signs/Intake and Output Vital Signs (last 24 hours): Temp Pulse Resp BP Pulse Ox 98.6 F 89 20 115/59 L 96 01/18/19 16:14 01/18/19 17:00 01/18/19 16:14 01/18/19 16:14 01/18/19 16:14 Intake and Output: 01/18/19 01/18/19 06:59 18:59 Intake Total 75 Balance 75 - Medications Medications: Current Medications Aspirin (Aspirin Chewable) 81 mg PO DAILY [facility] Last Admin: 01/18/19 11:29 Dose: 81 mg Dextrose (Dextrose 50% Inj) 0 ml IV STAT PRN; Protocol PRN Reason: Hypoglycemia Protocol Dextrose (Glutose 15) 0 gm PO ONCE PRN; Protocol PRN Reason: Hypoglycemia Protocol Dextrose (Dextrose 50% Inj) 0 ml IV STAT PRN; Protocol PRN Reason: Hypoglycemia Protocol Dextrose (Glutose 15) 0 gm PO ONCE PRN; Protocol PRN Reason: Hypoglycemia Protocol Furosemide (Lasix) 40 mg PO DAILY [facility] Last Admin: 01/18/19 11:32 Dose: 40 mg Glucagon (Glucagen Diagnostic Kit) 0 mg IM STAT PRN; Protocol PRN Reason: Hypoglycemia Protocol Glucagon (Glucagen Diagnostic Kit) 0 mg IM STAT PRN; Protocol PRN Reason: Hypoglycemia Protocol Heparin Sodium/Sodium Chloride (Heparin 74288 Units/250ml 1/2 Normal Saline) 25,000 units in 250 mls @ 12.955 mls/hr IV .[id number] PRN; Protocol PRN Reason: ADJUST RATE PER PROTOCOL Last Titration: 01/18/19 09:18 Dose: 14 units/kg/hr, 15.114 mls/hr Dextrose (Dextrose 5% In Water 1000 Ml) 1,000 mls @ 0 mls/hr IV .Q0M PRN; Protocol PRN Reason: Hypoglycemia Protocol Dextrose (Dextrose 5% In Water 1000 Ml) 1,000 mls @ 0 mls/hr IV .Q0M PRN; Protocol PRN Reason: Hypoglycemia Protocol Insulin Aspart (Novolog) 0 unit SC ACHS [facility]; Protocol Last Admin: 01/18/19 12:30 Dose: 3 units Lisinopril (Zestril) 2.5 mg PO DAILY [facility] Last Admin: 01/18/19 11:29 Dose: 2.5 mg Metoprolol Tartrate (Lopressor) 50 mg PO BID [facility] Pantoprazole Sodium (Protonix Inj) 40 mg IVP DAILY [facility] Last Admin: 01/18/19 11:29 Dose: 40 mg Rosuvastatin Calcium (Crestor) 10 mg PO HS DIANA Ticagrelor (Brilinta) 90 mg PO BID [facility] Last Admin: 01/18/19 11:29 Dose: 90 mg - Labs Labs: 01/18/19 11:38 01/18/19 11:38 PT 11.5 SECONDS (9.7-12.2) 01/17/19 16:17 INR 1.1 01/17/19 16:17 APTT 57.0 SECONDS (21-34) H D 01/18/19 15:21 - Constitutional Appears: Non-toxic, No Acute Distress - Head Exam Head Exam: ATRAUMATIC, NORMOCEPHALIC - Eye Exam Eye Exam: EOMI - ENT Exam ENT Exam: Mucous Membranes Moist - Respiratory Exam Respiratory Exam: Clear to Ausculation Bilateral - Cardiovascular Exam Cardiovascular Exam: +S1, +S2 - GI/Abdominal Exam Additional comments: Central obesity - Extremities Exam Extremities Exam: absent: Pedal Edema, Tenderness - Neurological Exam Neurological Exam: Alert, Awake, Oriented x3 - Psychiatric Exam Psychiatric exam: Normal Affect, Normal Mood - Skin Skin Exam: Dry, Intact Assessment and Plan - Assessment and Plan (Free Text) Assessment: 63M w/ PMhx of CAD w/ stents, HTN, DM, presents to ED for chest pain, found to be NSTEMI Plan: NSTEMI CAD w/ stents - elevated troponin @ 0.160; ekg: sinus tachy @ 104, rbbb, left anterior fasicular, widen QRS - Heparin ggt - CTA 01/17: No evidence of acute central pulmonary embolus. Cardiomegaly. Minor passive/dependent type atelectasis both posterior lung bases. - f/u cardio recs, Dr. Willard - f/u echo read - UDS negative - Continue to trend trops Meds -Heparin ggt Sleep Apnea - O2 Sat 92% on NC 3LPM, obese gentleman w/ loud snoring - Bipap @ night time 12/ Fio2 40% - Dr. Luis Bautista --Sleep study as outpatient. CPAP at night of 10 cm water --Diureticss --Cardio workup --Smoking cessation. Diuretics. Cardiac workup. Patient advised to quit smoking --TSH/free T4 WNL History of HTN - hold home medication metoprolol 100 mg BID until UDS - c/w lasix 40 mg PO daily History of Diabetes - Blood sugars 180s - F/u HgA1C - Accuchecks ACHS - Hypoglycemia protocol PPx DVT: on heparin drip for STEMI GI: Protonix 40 mg IVP daily Assessment and plan d/w Dr. Jose Alejandro Antonio, PGY-1 - <Alphonse Blount - Last Filed: 01/18/19 19:53> Objective - Vital Signs/Intake and Output Vital Signs (last 24 hours): Temp Pulse Resp BP Pulse Ox 98.6 F 89 20 115/59 L 96 01/18/19 16:14 01/18/19 17:00 01/18/19 16:14 01/18/19 16:14 01/18/19 16:14 Intake and Output: 01/18/19 01/19/19 18:59 06:59 Intake Total 75 Balance 75 - Medications Medications: Current Medications Aspirin (Aspirin Chewable) 81 mg PO DAILY [facility] Last Admin: 01/18/19 11:29 Dose: 81 mg Dextrose (Dextrose 50% Inj) 0 ml IV STAT PRN; Protocol PRN Reason: Hypoglycemia Protocol Dextrose (Glutose 15) 0 gm PO ONCE PRN; Protocol PRN Reason: Hypoglycemia Protocol Dextrose (Dextrose 50% Inj) 0 ml IV STAT PRN; Protocol PRN Reason: Hypoglycemia Protocol Dextrose (Glutose 15) 0 gm PO ONCE PRN; Protocol PRN Reason: Hypoglycemia Protocol Furosemide (Lasix) 40 mg PO DAILY [facility] Last Admin: 01/18/19 11:32 Dose: 40 mg Glucagon (Glucagen Diagnostic Kit) 0 mg IM STAT PRN; Protocol PRN Reason: Hypoglycemia Protocol Glucagon (Glucagen Diagnostic Kit) 0 mg IM STAT PRN; Protocol PRN Reason: Hypoglycemia Protocol Home Med (Betamethasone Valerate 0.1% [Valisone]) 1 applic TP BID [facility] Heparin Sodium/Sodium Chloride (Heparin 85666 Units/250ml 1/2 Normal Saline) 25,000 units in 250 mls @ 12.955 mls/hr IV .[id number] PRN; Protocol PRN Reason: ADJUST RATE PER PROTOCOL Last Titration: 01/18/19 09:18 Dose: 14 units/kg/hr, 15.114 mls/hr Dextrose (Dextrose 5% In Water 1000 Ml) 1,000 mls @ 0 mls/hr IV .Q0M PRN; Protocol PRN Reason: Hypoglycemia Protocol Dextrose (Dextrose 5% In Water 1000 Ml) 1,000 mls @ 0 mls/hr IV .Q0M PRN; Protocol PRN Reason: Hypoglycemia Protocol Insulin Aspart (Novolog) 0 unit SC ACHS [facility]; Protocol Last Admin: 01/18/19 18:02 Dose: 2 units Lisinopril (Zestril) 2.5 mg PO DAILY [facility] Last Admin: 01/18/19 11:29 Dose: 2.5 mg Metoprolol Tartrate (Lopressor) 50 mg PO BID [facility] Last Admin: 01/18/19 18:05 Dose: 50 mg Pantoprazole Sodium (Protonix Inj) 40 mg IVP DAILY [facility] Last Admin: 01/18/19 11:29 Dose: 40 mg Ranolazine (Ranexa) 500 mg PO BID [facility] Rosuvastatin Calcium (Crestor) 10 mg PO HS [facility] Ticagrelor (Brilinta) 90 mg PO BID [facility] Last Admin: 01/18/19 18:04 Dose: 90 mg - Labs Labs: 01/18/19 11:38 01/18/19 11:38 PT 11.5 SECONDS (9.7-12.2) 01/17/19 16:17 INR 1.1 01/17/19 16:17 APTT 57.0 SECONDS (21-34) H D 01/18/19 15:21 Attending/Attestation - Attestation I have personally seen and examined this patient.: Yes I have fully participated in the care of the patient.: Yes I have reviewed all pertinent clinical information, including history, physical exam and plan: Yes Notes (Text): seen and examined this morning with the resident. patient denies chest pain. He gets this pain on and off retrosternal pain. He is really want to get help for this chest pain. He was asking to stop his heparin drip. Explain about the importance 1.NSTMI,Troponin trending down spoke to DR Willard we will continue heparin drip,brillinta,asprin and add Ranexa 500mg bid no plan for cath or stress test,repeat troponin in am 2.CAD,history of stent 3.Sleep apnea 4.HTN 5.DM
[2019-01-18] MEDS ORDERED: BETAMETHASONE VALERATE 0.1% TP SCH (19:15)
--- NOTE | 2019-01-18 21:23 | CARD ---
APPROVED REPORT Date of service: 01/18/2019 EXAM: Two-dimensional and M-mode echocardiogram with Doppler and color Doppler. Other Information Quality : GoodRhythm : INDICATION Chest Pain elevated troponins, obese RISK FACTORS Hypertension Obesity Diabetes 2D DIMENSIONS IVSd1.1 (0.7-1.1cm)LVDd4.7 (3.9-5.9cm) LVOT Diameter2.1 (1.8-2.4cm)PWd1.5 (0.7-1.1cm) LA Fmhrge85 (18-58mL)LVDs3.8 (2.5-4.0cm) FS (%) 19.3 %LVEF (%)39.7 (>50%) LVEF (Thompson's)39.18 %IVC0.00 cm M-Mode DIMENSIONS Left Atrium (MM)4.58 (2.5-4.0cm)IVSd0.99 (0.7-1.1cm) Aortic Root2.80 (2.2-3.7cm)LVDd5.73 (4.0-5.6cm) Aortic Cusp Exc.1.00 (1.5-2.0cm)PWd1.28 (0.7-1.1cm) FS (%) 29 %LVDs4.04 (2.0-3.8cm) LVEF (%)45 (>50%) Aortic Valve AoV Peak Qkbrdyuk079.1cm/sAoV VTI51.9cmAO Peak GR.32mmHg LVOT Peak Owegvvtr67.9cm/sLVOT VTI18.91cmAO Mean GR.18mmHg RAFAT (VMAX)1.23ps6WOV (VTI)1.28cm2 Mitral Valve MV E Stegzjpd864.5cm/sMV A Dpfnfeuv589.3cm/sE/A ratio0.9 TDI Lateral E' Peak V7.00cm/sMedial E' Peak V4.61cm/sE/Lateral E'14.9 E/Medial E'22.7 LEFT VENTRICLE The left ventricle is normal size. Moderately increased left ventricular thickness. The left ventricular function is normal. The left ventricular ejection fraction is within the normal range. about55% visually estimated. No regional wall motion abnormalities noted. The left ventricular diastolic function is indeterminate No left ventricle thrombus noted on this study. There is no ventricular septal defect visualized. There is no left ventricular aneurysm. There is no mass noted in the left ventricle. RIGHT VENTRICLE The right ventricle is normal size. There is normal right ventricular wall thickness. The right ventricular systolic function is normal. ATRIA The left atrium size is normal. The right atrium size is normal. The interatrial septum is intact with no evidence for an atrial septal defect. AORTIC VALVE The aortic valve is calcified with mild to moderately reduced opening. Peak/mean velocities are 33/19 mm Hg, averaged valve area is 1.3 cm2. No aortic regurgitation is present. There is no aortic valvular vegetation. MITRAL VALVE The mitral valve is normal in structure and function. There is no evidence of mitral valve prolapse. There is no mitral valve stenosis. There is no mitral valve regurgitation noted. TRICUSPID VALVE The tricuspid valve is normal in structure and function. There is no tricuspid valve regurgitation noted. There is no tricuspid valve prolapse or vegetation. There is no tricuspid valve stenosis. PULMONIC VALVE The pulmonary valve is normal in structure and function. There is no pulmonic valvular regurgitation. There is no pulmonic valvular stenosis. GREAT VESSELS The aortic root is normal in size. The ascending aorta is normal in size. The pulmonary artery is normal. The IVC is normal in size and collapses >50% with inspiration. PERICARDIAL EFFUSION The pericardium appears normal. There is no pleural effusion. <Conclusion> The left ventricular function is normal. The left ventricular ejection fraction is within the normal range, about 55% visually estimated. Moderately increased left ventricular thickness. Mild to moderate aortic stenosis. Normal doppler.
--- NOTE | 2019-01-18 21:40 | CARD ---
APPROVED REPORT Date of service: 01/17/2019 EKG Measurement Heart [id number] <Conclusion> Sinus tachycardia Right bundle branch block T wave abnormality, consider lateral ischemia Abnormal ECG
[2019-01-18] MEDS: Ranolazine 500 mg Extended Release Tablets PO SCH (22:01)
[2019-01-19] MEDS: (Novolog) Insulin Aspart, Recombinant 100 u/ml 10 ml vial SC SCH ×4 (08:00→22:19)
[2019-01-19 08:41] LABS: BASO # 0.1 K/uL (0.0-0.2); BASO % 0.7 % (0.0-2.0); EOS # 0.1 K/uL (0.0-0.7); EOS % 1.5 % (0.0-4.0); HEMOGLOBIN 13.1 g/dL (12.0-18.0); LYMPH # 1.5 K/uL (1.0-4.3); LYMPH % 16.9 % (20.0-40.0); MEAN CELL VOLUME 92.7 fL (80.0-94.0); MEAN CORPUSCULAR HEMOGLOBIN 31.2 pg (27.0-31.0); MEAN CORPUSCULAR HGB CONC 33.6 g/dL (33.0-37.0); MEAN PLATELET VOLUME 8.5 fL (7.2-11.7); MONO # 0.8 K/uL (0.0-0.8); MONO % 8.7 % (0.0-10.0); NEUT # 6.5 K/uL (1.8-7.0); NEUT % 72.2 % (50.0-75.0); NRBC % 0.1 % (0.0-2.0); RBC 4.19 Mil/uL (4.40-5.90); RED CELL DISTRIBUTION WIDTH 15.4 % (11.5-14.5); WHITE BLOOD COUNT 9.1 K/uL (4.8-10.8)
[2019-01-19 08:57] LABS: ALB/GLOB RATIO 1.3 (1.0-2.1); ALBUMIN 3.8 g/dL (3.5-5.0); ALT/SGPT 25 U/L (21-72); AST/SGOT 34 U/L (17-59); BLOOD UREA NITROGEN 21 mg/dL (9-20); GFR NON-AFRICAN AMERICAN > 60
[2019-01-19] MEDS: Ranolazine 500 mg Extended Release Tablets PO SCH ×2 (09:58→18:44)
[2019-01-19] MEDS ORDERED: Ranolazine 500 mg Extended Release Tablets PO SCH (10:00)
--- NOTE | 2019-01-19 14:14 | CP.PCM.PN ---
<Rhett Antonio - Last Filed: 01/19/19 14:17> Subjective - Date & Time of Evaluation Date of Evaluation: 01/19/19 Time of Evaluation: 14:17 - Subjective Subjective: PGY-[address] Blount Patient seen and examined at bedside. No acute events overnight. Patient tolerating NC O2 in no acute distress with CPAP at night. Patient no longer c/o chest pain. He expressed frustration regarding his ongoing health issues and hospitalization. Counseled regarding diet and meds. Denies headache, dizziness, palpitations, radiating pain. Objective - Vital Signs/Intake and Output Vital Signs (last 24 hours): Temp Pulse Resp BP Pulse Ox 97.8 F 92 H 20 132/80 96 01/19/19 07:47 01/19/19 12:31 01/19/19 07:47 01/19/19 09:57 01/19/19 12:31 Intake and Output: 01/19/19 01/19/19 06:59 18:59 Intake Total 175 Output Total 300 Balance -125 - Medications Medications: Current Medications Aspirin (Aspirin Chewable) 81 mg PO DAILY [facility] Last Admin: 01/19/19 09:58 Dose: 81 mg Dextrose (Dextrose 50% Inj) 0 ml IV STAT PRN; Protocol PRN Reason: Hypoglycemia Protocol Dextrose (Glutose 15) 0 gm PO ONCE PRN; Protocol PRN Reason: Hypoglycemia Protocol Dextrose (Dextrose 50% Inj) 0 ml IV STAT PRN; Protocol PRN Reason: Hypoglycemia Protocol Dextrose (Glutose 15) 0 gm PO ONCE PRN; Protocol PRN Reason: Hypoglycemia Protocol Fluocinonide (Lidex 0.05% Cream) 0 gm TOP BID [facility] Last Admin: 01/19/19 11:21 Dose: 1 applic Furosemide (Lasix) 40 mg PO DAILY [facility] Last Admin: 01/19/19 09:57 Dose: 40 mg Glucagon (Glucagen Diagnostic Kit) 0 mg IM STAT PRN; Protocol PRN Reason: Hypoglycemia Protocol Glucagon (Glucagen Diagnostic Kit) 0 mg IM STAT PRN; Protocol PRN Reason: Hypoglycemia Protocol Heparin Sodium/Sodium Chloride (Heparin 55474 Units/250ml 1/2 Normal Saline) 25,000 units in 250 mls @ 12.955 mls/hr IV .[id number] PRN; Protocol PRN Reason: ADJUST RATE PER PROTOCOL Last Admin: 01/18/19 21:56 Dose: 14 units/kg/hr, 15.114 mls/hr Dextrose (Dextrose 5% In Water 1000 Ml) 1,000 mls @ 0 mls/hr IV .Q0M PRN; Protocol PRN Reason: Hypoglycemia Protocol Dextrose (Dextrose 5% In Water 1000 Ml) 1,000 mls @ 0 mls/hr IV .Q0M PRN; Protocol PRN Reason: Hypoglycemia Protocol Insulin Aspart (Novolog) 0 unit SC [facility]; Protocol Last Admin: 01/19/19 13:25 Dose: 3 units Lisinopril (Zestril) 2.5 mg PO DAILY [facility] Last Admin: 01/19/19 11:21 Dose: 2.5 mg Metoprolol Tartrate (Lopressor) 50 mg PO BID [facility] Last Admin: 01/19/19 09:57 Dose: 50 mg Pantoprazole Sodium (Protonix Inj) 40 mg IVP DAILY [facility] Last Admin: 01/19/19 09:59 Dose: 40 mg Ranolazine (Ranexa) 500 mg PO BID [facility] Last Admin: 01/19/19 09:58 Dose: 500 mg Rosuvastatin Calcium (Crestor) 10 mg PO HS [facility] Last Admin: 01/18/19 21:56 Dose: 10 mg Ticagrelor (Brilinta) 90 mg PO BID [facility] Last Admin: 01/19/19 09:58 Dose: 90 mg - Labs Labs: 01/19/19 08:10 01/19/19 08:10 PT 11.5 SECONDS (9.7-12.2) 01/17/19 16:17 INR 1.1 01/17/19 16:17 APTT 77.0 SECONDS (21-34) H D 01/18/19 21:33 - Constitutional Appears: No Acute Distress - Head Exam Head Exam: ATRAUMATIC, NORMOCEPHALIC - Eye Exam Eye Exam: Normal appearance - ENT Exam ENT Exam: Mucous Membranes Moist - Respiratory Exam Respiratory Exam: Clear to Ausculation Bilateral. absent: Rhonchi, Wheezes - Cardiovascular Exam Cardiovascular Exam: REGULAR RHYTHM, +S1, +S2 - GI/Abdominal Exam GI & Abdominal Exam: Soft, Normal Bowel Sounds. absent: Tenderness Additional comments: central obesity - Neurological Exam Neurological Exam: Alert, Awake, Oriented x3 - Psychiatric Exam Psychiatric exam: Normal Affect, Normal Mood - Skin Skin Exam: Dry, Intact Assessment and Plan - Assessment and Plan (Free Text) Assessment: 63M w/ PMhx of CAD w/ stents, HTN, DM, presents to ED for chest pain, found to be NSTEMI. Trending trops while patient on heparin ggt. Plan: NSTEMI CAD w/ stents - elevated troponin @ 0.160; ekg: sinus tachy @ 104, rbbb, left anterior fasicular, widen QRS - Heparin ggt - CTA 01/17: No evidence of acute central pulmonary embolus. Cardiomegaly. Minor passive/dependent type atelectasis both posterior lung bases. - Cardio, Dr. Willard - Echo 01/17: Mild to moderate aortic stenosis. EF is within the normal range. Otherwise normal doppler. - UDS negative - Continue to trend trops Meds -Heparin ggt Sleep Apnea - O2 Sat 92% on NC 3LPM, obese gentleman w/ loud snoring - Bipap @ night time 12/ Fio2 40% - PulmDr. Smith --Sleep study as outpatient. CPAP at night of 10 cm water --Smoking cessation. Diuretics. Cardiac workup. Patient advised to quit smoking --TSH/free T4 WNL History of HTN - hold home medication metoprolol 100 mg BID until UDS - Lasix 40 mg PO daily DM - Blood sugars 180s - HgA1C 7.6 - Accuchecks ACHS - Hypoglycemia protocol PPx DVT: on heparin drip for STEMI GI: Protonix 40 mg IVP daily Assessment and plan d/w Dr. Jose Alejandro Antonio, PGY-1 <Alphonse Blount - Last Filed: 01/19/19 19:33> Objective - Vital Signs/Intake and Output Vital Signs (last 24 hours): Temp Pulse Resp BP Pulse Ox 98.2 F 90 22 121/71 95 01/19/19 16:00 01/19/19 17:17 01/19/19 16:00 01/19/19 16:00 01/19/19 16:00 Intake and Output: 01/19/19 01/20/19 18:59 06:59 Intake Total 250 Balance 250 - Medications Medications: Current Medications Aspirin (Aspirin Chewable) 81 mg PO DAILY [facility] Last Admin: 01/19/19 09:58 Dose: 81 mg Dextrose (Glutose 15) 0 gm PO ONCE PRN; Protocol PRN Reason: Hypoglycemia Protocol Dextrose (Dextrose 50% Inj) 0 ml IV STAT PRN; Protocol PRN Reason: Hypoglycemia Protocol Fluocinonide (Lidex 0.05% Cream) 0 gm TOP BID [facility] Last Admin: 01/19/19 18:45 Dose: 1 applic Furosemide (Lasix) 40 mg PO DAILY [facility] Last Admin: 01/19/19 09:57 Dose: 40 mg Glucagon (Glucagen Diagnostic Kit) 0 mg IM STAT PRN; Protocol PRN Reason: Hypoglycemia Protocol Heparin Sodium/Sodium Chloride (Heparin 72313 Units/250ml 1/2 Normal Saline) 25,000 units in 250 mls @ 12.955 mls/hr IV .[id number] PRN; Protocol PRN Reason: ADJUST RATE PER PROTOCOL Last Admin: 01/19/19 18:43 Dose: 14 units/kg/hr, 15.114 mls/hr Dextrose (Dextrose 5% In Water 1000 Ml) 1,000 mls @ 0 mls/hr IV .Q0M PRN; Protocol PRN Reason: Hypoglycemia Protocol Insulin Aspart (Novolog) 0 unit SC [facility]S [facility]; Protocol Last Admin: 01/19/19 18:45 Dose: 2 units Lisinopril (Zestril) 2.5 mg PO DAILY [facility] Last Admin: 01/19/19 11:21 Dose: 2.5 mg Metoprolol Tartrate (Lopressor) 50 mg PO BID [facility] Last Admin: 01/19/19 18:44 Dose: 50 mg Pantoprazole Sodium (Protonix Ec Tab) 40 mg PO DAILY [facility] Ranolazine (Ranexa) 500 mg PO BID [facility] Last Admin: 01/19/19 18:44 Dose: 500 mg Rosuvastatin Calcium (Crestor) 10 mg PO HS [facility] Last Admin: 01/18/19 21:56 Dose: 10 mg Ticagrelor (Brilinta) 90 mg PO BID [facility] Last Admin: 01/19/19 18:44 Dose: 90 mg - Labs Labs: 01/19/19 08:10 01/19/19 08:10 PT 11.5 SECONDS (9.7-12.2) 01/17/19 16:17 INR 1.1 01/17/19 16:17 APTT 90.0 SECONDS (21-34) H D 01/19/19 17:22 Attending/Attestation - Attestation I have personally seen and examined this patient.: Yes I have fully participated in the care of the patient.: Yes I have reviewed all pertinent clinical information, including history, physical exam and plan: Yes Notes (Text): Patient denies chest pain His troponin is coming down today 1.[address] Willard. we will continue heparin drip,Brilinta,aspirin and ranexa with his home meds If troponin comes down we will discharge him home on Ranexa his HR is around 90ies. we will increase metoprolol to 75mg bid
--- NOTE | 2019-01-19 18:25 | CP.PCM.PN ---
Subjective - Date & Time of Evaluation Date of Evaluation: 01/19/19 Time of Evaluation: 17:00 - Subjective Subjective: Patient seen and examined Denies shortness of breath and cough Less swelling of the legs Using BiPAP at night Diuresing Afebrile Objective - Vital Signs/Intake and Output Vital Signs (last 24 hours): Temp Pulse Resp BP Pulse Ox 98.2 F 90 22 121/71 95 01/19/19 16:00 01/19/19 17:17 01/19/19 16:00 01/19/19 16:00 01/19/19 16:00 Intake and Output: 01/19/19 01/19/19 06:59 18:59 Intake Total 175 Output Total 300 Balance -125 - Medications Medications: Current Medications Aspirin (Aspirin Chewable) 81 mg PO DAILY [facility] Last Admin: 01/19/19 09:58 Dose: 81 mg Dextrose (Glutose 15) 0 gm PO ONCE PRN; Protocol PRN Reason: Hypoglycemia Protocol Dextrose (Dextrose 50% Inj) 0 ml IV STAT PRN; Protocol PRN Reason: Hypoglycemia Protocol Fluocinonide (Lidex 0.05% Cream) 0 gm TOP BID [facility] Last Admin: 01/19/19 11:21 Dose: 1 applic Furosemide (Lasix) 40 mg PO DAILY [facility] Last Admin: 01/19/19 09:57 Dose: 40 mg Glucagon (Glucagen Diagnostic Kit) 0 mg IM STAT PRN; Protocol PRN Reason: Hypoglycemia Protocol Heparin Sodium/Sodium Chloride (Heparin 28185 Units/250ml 1/2 Normal Saline) 25,000 units in 250 mls @ 12.955 mls/hr IV .[id number] PRN; Protocol PRN Reason: ADJUST RATE PER PROTOCOL Last Admin: 01/18/19 21:56 Dose: 14 units/kg/hr, 15.114 mls/hr Dextrose (Dextrose 5% In Water 1000 Ml) 1,000 mls @ 0 mls/hr IV .Q0M PRN; Protocol PRN Reason: Hypoglycemia Protocol Insulin Aspart (Novolog) 0 unit SC ACHS [facility]; Protocol Last Admin: 01/19/19 13:25 Dose: 3 units Lisinopril (Zestril) 2.5 mg PO DAILY [facility] Last Admin: 01/19/19 11:21 Dose: 2.5 mg Metoprolol Tartrate (Lopressor) 50 mg PO BID [facility] Last Admin: 01/19/19 09:57 Dose: 50 mg Pantoprazole Sodium (Protonix Ec Tab) 40 mg PO DAILY [facility] Ranolazine (Ranexa) 500 mg PO BID [facility] Last Admin: 01/19/19 09:58 Dose: 500 mg Rosuvastatin Calcium (Crestor) 10 mg PO HS [facility] Last Admin: 01/18/19 21:56 Dose: 10 mg Ticagrelor (Brilinta) 90 mg PO BID [facility] Last Admin: 01/19/19 09:58 Dose: 90 mg - Labs Labs: 01/19/19 08:10 01/19/19 08:10 PT 11.5 SECONDS (9.7-12.2) 01/17/19 16:17 INR 1.1 01/17/19 16:17 APTT 90.0 SECONDS (21-34) H D 01/19/19 17:22 Assessment and Plan (1) PERRI (obstructive sleep apnea) Status: Acute (2) Chest pain Status: Acute (3) Obesity Status: Acute
[2019-01-19] MEDS: Heparin25000 units/250ml 1/2NS 25,000 UNITS/250 ML BAG IV PRN (18:43)
--- NOTE | 2019-01-19 21:20 | CP.PCM.PN ---
Subjective - Date & Time of Evaluation Date of Evaluation: 01/18/19 Time of Evaluation: 17:30 - Subjective Subjective: Patient seen and evaluated Troponins trnding up Review of Systems - Constitutional Constitutional: Daytime Sleepiness. absent: Chills, Headache, Weight Gain, Weight Loss - EENT Eyes: absent: Blurred Vision, Change in Vision - Cardiovascular Cardiovascular: absent: Chest Pain, Chest Pain at Rest, Dyspnea - Respiratory Respiratory: absent: Cough, Dyspnea, Dyspnea on Exertion - Gastrointestinal Gastrointestinal: absent: Bloating, Constipation, Diarrhea - Genitourinary Genitourinary: absent: Change in Urinary Stream, Difficulty Urinating - Musculoskeletal Musculoskeletal: absent: Arthralgias, Joint Swelling - Integumentary Integumentary: Swelling Additional comments: b/l lower extremity swelling - Neurological Neurological: absent: Disequilibrium, Headaches - Psychiatric Psychiatric: absent: Anxiety, Change in Appetite - Endocrine Endocrine: absent: Change in Body Appearance, Deepening of Voice - Hematologic/Lymphatic Hematologic: absent: As Per HPI, Easy Bleeding, Easy Bruising Physical Exam - Constitutional Appears: Non-toxic, No Acute Distress Additional comments: pt laying bed, NAD, sleeping w/ loud snoring, loose dentures in mouth, tounge retracted - Head Exam Head Exam: ATRAUMATIC, NORMAL INSPECTION - Eye Exam Eye Exam: EOMI, Normal appearance - ENT Exam ENT Exam: Mucous Membranes Moist Additional comments: lose dentures in mouth - Neck Exam Neck exam: Positive for: Full Rom, Thyromegaly. Negative for: Tenderness Additional comments: ? thyrodmegaly - Respiratory Exam Respiratory Exam: Decreased Breath Sounds. absent: Rales, Rhonchi, Wheezes - Cardiovascular Exam Cardiovascular Exam: +S1, +S2. absent: Systolic Murmur - GI/Abdominal Exam GI & Abdominal Exam: Normal Bowel Sounds, Soft. absent: Distended, Firm, Guarding, Hernia - Extremities Exam Extremities exam: Positive for: full ROM, pedal edema. Negative for: calf tenderness, tenderness Additional comments: 1+ pitting edema - Back Exam Back exam: absent: CVA tenderness (L), CVA tenderness (R) - Neurological Exam Neurological exam: Alert, Oriented x3 - Psychiatric Exam Additional comments: extremely sleep unable to assess - Skin Skin Exam: Dry, Intact, Normal Color, Warm Objective - Vital Signs/Intake and Output Vital Signs (last 24 hours): Temp Pulse Resp BP Pulse Ox 98.2 F 90 22 121/71 95 01/19/19 16:00 01/19/19 17:17 01/19/19 16:00 01/19/19 16:00 01/19/19 16:00 Intake and Output: 01/19/19 01/20/19 18:59 06:59 Intake Total 250 Balance 250 - Medications Medications: Current Medications Aspirin (Aspirin Chewable) 81 mg PO DAILY [facility] Last Admin: 01/19/19 09:58 Dose: 81 mg Dextrose (Glutose 15) 0 gm PO ONCE PRN; Protocol PRN Reason: Hypoglycemia Protocol Dextrose (Dextrose 50% Inj) 0 ml IV STAT PRN; Protocol PRN Reason: Hypoglycemia Protocol Fluocinonide (Lidex 0.05% Cream) 0 gm TOP BID [facility] Last Admin: 01/19/19 18:45 Dose: 1 applic Furosemide (Lasix) 40 mg PO DAILY [facility] Last Admin: 01/19/19 09:57 Dose: 40 mg Glucagon (Glucagen Diagnostic Kit) 0 mg IM STAT PRN; Protocol PRN Reason: Hypoglycemia Protocol Heparin Sodium/Sodium Chloride (Heparin 67443 Units/250ml 1/2 Normal Saline) 25,000 units in 250 mls @ 12.955 mls/hr IV .[id number] PRN; Protocol PRN Reason: ADJUST RATE PER PROTOCOL Last Admin: 01/19/19 18:43 Dose: 14 units/kg/hr, 15.114 mls/hr Dextrose (Dextrose 5% In Water 1000 Ml) 1,000 mls @ 0 mls/hr IV .Q0M PRN; Protocol PRN Reason: Hypoglycemia Protocol Insulin Aspart (Novolog) 0 unit SC ACHS [facility]; Protocol Last Admin: 01/19/19 18:45 Dose: 2 units Lisinopril (Zestril) 2.5 mg PO DAILY [facility] Last Admin: 01/19/19 11:21 Dose: 2.5 mg Metoprolol Tartrate (Lopressor) 75 mg PO BID [facility] Pantoprazole Sodium (Protonix Ec Tab) 40 mg PO DAILY [facility] Ranolazine (Ranexa) 500 mg PO BID [facility] Last Admin: 01/19/19 18:44 Dose: 500 mg Rosuvastatin Calcium (Crestor) 10 mg PO HS [facility] Last Admin: 01/18/19 21:56 Dose: 10 mg Ticagrelor (Brilinta) 90 mg PO BID [facility] Last Admin: 01/19/19 18:44 Dose: 90 mg - Labs Labs: 01/19/19 08:10 01/19/19 08:10 PT 11.5 SECONDS (9.7-12.2) 01/17/19 16:17 INR 1.1 01/17/19 16:17 APTT 90.0 SECONDS (21-34) H D 01/19/19 17:22 Assessment and Plan - Assessment and Plan (Free Text) Assessment: 63M w/ PMhx of CAD w/ stents, HTN, DM, presents to ED for chest pain, found to be NSTEMI Plan: NSTEMI CAD w/ stents - elevated troponin @ 0.160; ekg: sinus tachy @ 104, rbbb, left anterior fasicular, widen QRS - Heparin ggt - CTA 01/17: No evidence of acute central pulmonary embolus. Cardiomegaly. Minor passive/dependent type atelectasis both posterior lung bases. - Continue to trend trops Meds -Heparin ggt Sleep Apnea - O2 Sat 92% on NC 3LPM, obese gentleman w/ loud snoring - Bipap @ night time 08/20 Fio2 40% - Pulm, Dr. Smith --Sleep study as outpatient. CPAP at night of 10 cm water --Diureticss --Cardio workup --Smoking cessation. Diuretics. Cardiac workup. 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
--- NOTE | 2019-01-19 21:20 | CP.PCM.PN ---
Subjective - Date & Time of Evaluation Date of Evaluation: 01/19/19 Time of Evaluation: 19:10 - Subjective Subjective: Patient seen and evaluated Chest pain free Review of Systems - Constitutional Constitutional: Daytime Sleepiness. absent: Chills, Headache, Weight Gain, Weight Loss - EENT Eyes: absent: Blurred Vision, Change in Vision - Cardiovascular Cardiovascular: absent: Chest Pain, Chest Pain at Rest, Dyspnea - Respiratory Respiratory: absent: Cough, Dyspnea, Dyspnea on Exertion - Gastrointestinal Gastrointestinal: absent: Bloating, Constipation, Diarrhea - Genitourinary Genitourinary: absent: Change in Urinary Stream, Difficulty Urinating - Musculoskeletal Musculoskeletal: absent: Arthralgias, Joint Swelling - Integumentary Integumentary: Swelling Additional comments: b/l lower extremity swelling - Neurological Neurological: absent: Disequilibrium, Headaches - Psychiatric Psychiatric: absent: Anxiety, Change in Appetite - Endocrine Endocrine: absent: Change in Body Appearance, Deepening of Voice - Hematologic/Lymphatic Hematologic: absent: As Per HPI, Easy Bleeding, Easy Bruising Physical Exam - Constitutional Appears: Non-toxic, No Acute Distress Additional comments: pt laying bed, NAD, sleeping w/ loud snoring, loose dentures in mouth, tounge retracted - Head Exam Head Exam: ATRAUMATIC, NORMAL INSPECTION - Eye Exam Eye Exam: EOMI, Normal appearance - ENT Exam ENT Exam: Mucous Membranes Moist Additional comments: lose dentures in mouth - Neck Exam Neck exam: Positive for: Full Rom, Thyromegaly. Negative for: Tenderness Additional comments: ? thyrodmegaly - Respiratory Exam Respiratory Exam: Decreased Breath Sounds. absent: Rales, Rhonchi, Wheezes - Cardiovascular Exam Cardiovascular Exam: +S1, +S2. absent: Systolic Murmur - GI/Abdominal Exam GI & Abdominal Exam: Normal Bowel Sounds, Soft. absent: Distended, Firm, Guarding, Hernia - Extremities Exam Extremities exam: Positive for: full ROM, pedal edema. Negative for: calf tend erness, tenderness Additional comments: 1+ pitting edema - Back Exam Back exam: absent: CVA tenderness (L), CVA tenderness (R) - Neurological Exam Neurological exam: Alert, Oriented x3 - Psychiatric Exam Additional comments: extremely sleep unable to assess - Skin Skin Exam: Dry, Intact, Normal Color, Warm Objective - Vital Signs/Intake and Output Vital Signs (last 24 hours): Temp Pulse Resp BP Pulse Ox 98.2 F 90 22 121/71 95 01/19/19 16:00 01/19/19 17:17 01/19/19 16:00 01/19/19 16:00 01/19/19 16:00 Intake and Output: 01/19/19 01/20/19 18:59 06:59 Intake Total 250 Balance 250 - Medications Medications: Current Medications Aspirin (Aspirin Chewable) 81 mg PO DAILY [facility] Last Admin: 01/19/19 09:58 Dose: 81 mg Dextrose (Glutose 15) 0 gm PO ONCE PRN; Protocol PRN Reason: Hypoglycemia Protocol Dextrose (Dextrose 50% Inj) 0 ml IV STAT PRN; Protocol PRN Reason: Hypoglycemia Protocol Fluocinonide (Lidex 0.05% Cream) 0 gm TOP BID [facility] Last Admin: 01/19/19 18:45 Dose: 1 applic Furosemide (Lasix) 40 mg PO DAILY [facility] Last Admin: 01/19/19 09:57 Dose: 40 mg Glucagon (Glucagen Diagnostic Kit) 0 mg IM STAT PRN; Protocol PRN Reason: Hypoglycemia Protocol Heparin Sodium/Sodium Chloride (Heparin 14538 Units/250ml 1/2 Normal Saline) 25,000 units in 250 mls @ 12.955 mls/hr IV .[id number] PRN; Protocol PRN Reason: ADJUST RATE PER PROTOCOL Last Admin: 01/19/19 18:43 Dose: 14 units/kg/hr, 15.114 mls/hr Dextrose (Dextrose 5% In Water 1000 Ml) 1,000 mls @ 0 mls/hr IV .Q0M PRN; Protocol PRN Reason: Hypoglycemia Protocol Insulin Aspart (Novolog) 0 unit SC ACHS [facility]; Protocol Last Admin: 01/19/19 18:45 Dose: 2 units Lisinopril (Zestril) 2.5 mg PO DAILY [facility] Last Admin: 01/19/19 11:21 Dose: 2.5 mg Metoprolol Tartrate (Lopressor) 75 mg PO BID [facility] Pantoprazole Sodium (Protonix Ec Tab) 40 mg PO DAILY [facility] Ranolazine (Ranexa) 500 mg PO BID [facility] Last Admin: 01/19/19 18:44 Dose: 500 mg Rosuvastatin Calcium (Crestor) 10 mg PO HS [facility] Last Admin: 01/18/19 21:56 Dose: 10 mg Ticagrelor (Brilinta) 90 mg PO BID [facility] Last Admin: 01/19/19 18:44 Dose: 90 mg - Labs Labs: 01/19/19 08:10 01/19/19 08:10 PT 11.5 SECONDS (9.7-12.2) 01/17/19 16:17 INR 1.1 01/17/19 16:17 APTT 90.0 SECONDS (21-34) H D 01/19/19 17:22 Assessment and Plan - Assessment and Plan (Free Text) Assessment: 63M w/ PMhx of CAD w/ stents, HTN, DM, presents to ED for chest pain, found to be NSTEMI Plan: NSTEMI CAD w/ stents - elevated troponin @ 0.160; ekg: sinus tachy @ 104, rbbb, left anterior fasicular, widen QRS - Heparin ggt - CTA 01/17: No evidence of acute central pulmonary embolus. Cardiomegaly. Minor passive/dependent type atelectasis both posterior lung bases. - Continue to trend trops Meds -Heparin ggt Sleep Apnea - O2 Sat 92% on NC 3LPM, obese gentleman w/ loud snoring - Bipap @ night time 08/20 Fio2 40% - Pulm, Dr. Smith --Sleep study as outpatient. CPAP at night of 10 cm water --Diureticss --Cardio workup --Smoking cessation. Diuretics. Cardiac workup. 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
[2019-01-20 04:13] VITALS: RESP 20
[2019-01-20 07:22] LABS: BASO # 0.1 K/uL (0.0-0.2); BASO % 0.9 % (0.0-2.0); EOS # 0.2 K/uL (0.0-0.7); EOS % 1.9 % (0.0-4.0); HEMOGLOBIN 12.8 g/dL (12.0-18.0); LYMPH # 1.5 K/uL (1.0-4.3); LYMPH % 16.2 % (20.0-40.0); MEAN CORPUSCULAR HGB CONC 33.4 g/dL (33.0-37.0); MEAN PLATELET VOLUME 8.3 fL (7.2-11.7); MONO # 0.8 K/uL (0.0-0.8); MONO % 8.9 % (0.0-10.0); NEUT # 6.9 K/uL (1.8-7.0); NEUT % 72.1 % (50.0-75.0); NRBC % 0.1 % (0.0-2.0); RBC 4.13 Mil/uL (4.40-5.90); RED CELL DISTRIBUTION WIDTH 15.4 % (11.5-14.5); WHITE BLOOD COUNT 9.6 K/uL (4.8-10.8)
[2019-01-20 07:45] LABS: ALB/GLOB RATIO 1.3 (1.0-2.1); ALBUMIN 3.8 g/dL (3.5-5.0); ALT/SGPT 26 U/L (21-72); AST/SGOT 30 U/L (17-59); BLOOD UREA NITROGEN 22 mg/dL (9-20); CALCIUM 8.7 mg/dl (8.6-10.4); GFR NON-AFRICAN AMERICAN > 60
[2019-01-20] MEDS: (Novolog) Insulin Aspart, Recombinant 100 u/ml 10 ml vial SC SCH ×4 (08:21→22:28)
[2019-01-20] MEDS: Heparin25000 units/250ml 1/2NS 25,000 UNITS/250 ML BAG IV PRN (08:44)
[2019-01-20] MEDS: Ranolazine 500 mg Extended Release Tablets PO SCH ×2 (09:44→18:00)
[2019-01-20] MEDS: Pantoprazole 40 mg EC Tab PO SCH (09:44)
--- NOTE | 2019-01-20 15:43 | CP.PCM.PN ---
<Rhett Antonio - Last Filed: 01/20/19 15:43> Subjective - Date & Time of Evaluation Date of Evaluation: 01/20/19 Time of Evaluation: 15:43 - Subjective Subjective: PGY-[address] Blount Patient seen and examined at bedside. No acute events overnight. Patient tolerating NC O2 in no acute distress with CPAP at night. Patient had episode of chest pain today at rest that resolved spontaneously in 15 minutes - says decreased but same type of pain he experienced on admission, like a "twisting". Discussed with Dr. Willard. On hep ggt. Denies headache, dizziness, palpitations, radiating pain. Objective - Vital Signs/Intake and Output Vital Signs (last 24 hours): Temp Pulse Resp BP Pulse Ox 98.1 F 73 20 169/89 H 95 01/20/19 07:38 01/20/19 07:38 01/20/19 07:38 01/20/19 09:45 01/20/19 07:38 Intake and Output: 01/20/19 01/20/19 06:59 18:59 Intake Total 620 250 Output Total 800 Balance -180 250 - Medications Medications: Current Medications Aspirin (Aspirin Chewable) 81 mg PO DAILY [facility] Last Admin: 01/20/19 09:46 Dose: 81 mg Dextrose (Glutose 15) 0 gm PO ONCE PRN; Protocol PRN Reason: Hypoglycemia Protocol Dextrose (Dextrose 50% Inj) 0 ml IV STAT PRN; Protocol PRN Reason: Hypoglycemia Protocol Fluocinonide (Lidex 0.05% Cream) 0 gm TOP BID [facility] Last Admin: 01/20/19 12:09 Dose: 1 applic Furosemide (Lasix) 40 mg PO DAILY [facility] Last Admin: 01/20/19 09:45 Dose: 40 mg Glucagon (Glucagen Diagnostic Kit) 0 mg IM STAT PRN; Protocol PRN Reason: Hypoglycemia Protocol Heparin Sodium/Sodium Chloride (Heparin 02058 Units/250ml 1/2 Normal Saline) 25,000 units in 250 mls @ 12.955 mls/hr IV .[id number] PRN; Protocol PRN Reason: ADJUST RATE PER PROTOCOL Last Admin: 01/20/19 08:44 Dose: 14 units/kg/hr, 15.114 mls/hr Dextrose (Dextrose 5% In Water 1000 Ml) 1,000 mls @ 0 mls/hr IV .Q0M PRN; Protocol PRN Reason: Hypoglycemia Protocol Insulin Aspart (Novolog) 0 unit SC [facility]; Protocol Last Admin: 01/20/19 13:11 Dose: 3 units Isosorbide Mononitrate (Imdur Er) 30 mg PO DAILY [facility] Lisinopril (Zestril) 2.5 mg PO DAILY [facility] Last Admin: 01/20/19 12:09 Dose: 2.5 mg Metoprolol Tartrate (Lopressor) 75 mg PO BID [facility] Last Admin: 01/20/19 09:45 Dose: 75 mg Pantoprazole Sodium (Protonix Ec Tab) 40 mg PO DAILY [facility] Last Admin: 01/20/19 09:44 Dose: 40 mg Ranolazine (Ranexa) 500 mg PO BID [facility] Last Admin: 01/20/19 09:44 Dose: 500 mg Rosuvastatin Calcium (Crestor) 10 mg PO HS [facility] Last Admin: 01/19/19 22:19 Dose: 10 mg Ticagrelor (Brilinta) 90 mg PO BID [facility] Last Admin: 01/20/19 09:45 Dose: 90 mg - Labs Labs: 01/20/19 07:16 01/20/19 07:16 PT 11.5 SECONDS (9.7-12.2) 01/17/19 16:17 INR 1.1 01/17/19 16:17 APTT 81.0 SECONDS (21-34) H D 01/20/19 07:16 - Constitutional Appears: Non-toxic, No Acute Distress - Head Exam Head Exam: ATRAUMATIC, NORMOCEPHALIC - Eye Exam Eye Exam: EOMI - ENT Exam ENT Exam: Mucous Membranes Moist - Respiratory Exam Respiratory Exam: Clear to Ausculation Bilateral, NORMAL BREATHING PATTERN. absent: Rhonchi, Wheezes - Cardiovascular Exam Cardiovascular Exam: REGULAR RHYTHM, +S1, +S2 - GI/Abdominal Exam GI & Abdominal Exam: Soft, Normal Bowel Sounds. absent: Tenderness - Neurological Exam Neurological Exam: Alert, Awake, Oriented x3 - Psychiatric Exam Psychiatric exam: Normal Affect, Normal Mood - Skin Skin Exam: Dry, Intact Assessment and Plan - Assessment and Plan (Free Text) Assessment: 63M w/ PMhx of CAD w/ stents, HTN, DM, presents to ED for chest pain, found to be NSTEMI. Trending trops while patient on heparin ggt. Plan: NSTEMI CAD w/ stents - elevated troponin @ 0.160; ekg: sinus tachy @ 104, rbbb, left anterior fasicular, widen QRS - Heparin ggt - CTA 01/17: No evidence of acute central pulmonary embolus. Cardiomegaly. Minor passive/dependent type atelectasis both posterior lung bases. - Cardio, Dr. Willard - Echo 01/17: Mild to moderate aortic stenosis. EF is within the normal range. Otherwise normal doppler. - UDS negative - Continue to trend trops --> 1.25, trending down but remains elevated - --Con't hep drip and will repeat trops - --Transition to hep SC once trops resolve, per Dr. Willard. Imdur added per Dr. Willard Meds -Heparin ggt -Imdur 30 mg PO daily Sleep Apnea - O2 Sat 92% on NC 3LPM, obese gentleman w/ loud snoring - Bipap @ night time 12/6 Fio2 40% - Pulm, Dr. Smith --Sleep study as outpatient. CPAP at night of 10 cm water --Smoking cessation. Diuretics. Cardiac workup. Patient advised to quit smoking --TSH/free T4 WNL History of HTN - hold home medication metoprolol 100 mg BID until UDS - Lasix 40 mg PO daily - Imdur 30 mg PO daily DM - Blood sugars 180s - HgA1C 7.6 - Accuchecks ACHS - Hypoglycemia protocol PPx DVT: on heparin drip for STEMI GI: Protonix 40 mg IVP daily Assessment and plan d/w Dr. Jose Alejandro Antonio, PGY-1 <Alphonse Blount - Last Filed: 01/21/19 08:33> Objective - Vital Signs/Intake and Output Vital Signs (last 24 hours): Temp Pulse Resp BP Pulse Ox 97.6 F 89 20 143/88 98 01/21/19 07:51 01/21/19 07:51 01/21/19 07:51 01/21/19 07:51 01/21/19 07:51 Intake and Output: 01/21/19 01/21/19 06:59 18:59 Intake Total 300 Balance 300 - Medications Medications: Current Medications Aspirin (Aspirin Chewable) 81 mg PO DAILY [facility] Last Admin: 01/20/19 09:46 Dose: 81 mg Dextrose (Glutose 15) 0 gm PO ONCE PRN; Protocol PRN Reason: Hypoglycemia Protocol Dextrose (Dextrose 50% Inj) 0 ml IV STAT PRN; Protocol PRN Reason: Hypoglycemia Protocol Enoxaparin Sodium (Lovenox) 40 mg SC DAILY [facility] Fluocinonide (Lidex 0.05% Cream) 0 gm TOP BID [facility] Last Admin: 01/20/19 18:04 Dose: 1 applic Furosemide (Lasix) 40 mg PO DAILY [facility] Last Admin: 01/20/19 09:45 Dose: 40 mg Glucagon (Glucagen Diagnostic Kit) 0 mg IM STAT PRN; Protocol PRN Reason: Hypoglycemia Protocol Dextrose (Dextrose 5% In Water 1000 Ml) 1,000 mls @ 0 mls/hr IV .Q0M PRN; Javy col PRN Reason: Hypoglycemia Protocol Insulin Aspart (Novolog) 0 unit SC ACHS [facility]; Protocol Last Admin: 01/21/19 07:56 Dose: Not Given Isosorbide Mononitrate (Imdur Er) 30 mg PO DAILY [facility] Lisinopril (Zestril) 2.5 mg PO DAILY [facility] Last Admin: 01/20/19 12:09 Dose: 2.5 mg Metoprolol Tartrate (Lopressor) 75 mg PO BID [facility] Last Admin: 01/20/19 18:01 Dose: Not Given Pantoprazole Sodium (Protonix Ec Tab) 40 mg PO DAILY [facility] Last Admin: 01/20/19 09:44 Dose: 40 mg Ranolazine (Ranexa) 500 mg PO BID [facility] Last Admin: 01/20/19 18:00 Dose: 500 mg Rosuvastatin Calcium (Crestor) 10 mg PO HS [facility] Last Admin: 01/20/19 22:29 Dose: 10 mg Ticagrelor (Brilinta) 90 mg PO BID [facility] Last Admin: 01/20/19 18:00 Dose: 90 mg - Labs Labs: 01/21/19 06:10 01/21/19 06:10 PT 11.5 SECONDS (9.7-12.2) 01/17/19 16:17 INR 1.1 01/17/19 16:17 APTT 67.0 SECONDS (21-34) H D 01/20/19 17:12 Attending/Attestation - Attestation I have personally seen and examined this patient.: Yes I have fully participated in the care of the patient.: Yes I have reviewed all pertinent clinical information, including history, physical exam and plan: Yes Notes (Text): He had chest pain at rest in the morning. Troponin repeated,Imdur added spoke to Dr Willard,heparin drip discontinued, continue asprin,brilinta,Ranexa,imdur,metoprolol,lisinopril,crestos and lasix follow troponin in the morning. Discharge home if no chest pain and his troponin is ok
--- NOTE | 2019-01-21 03:40 | CARD ---
APPROVED REPORT Date of service: 01/18/2019 EKG Measurement Heart [id number] <Conclusion> Normal sinus rhythm Right bundle branch block T wave abnormality, consider lateral ischemia Abnormal ECG
[2019-01-21 06:24] LABS: EOS # 0.2 K/uL (0.0-0.7); LYMPH # 1.3 K/uL (1.0-4.3); LYMPH % 13.3 % (20.0-40.0); NRBC % 0.1 % (0.0-2.0)
[2019-01-21 06:29] LABS: BASO # 0.1 K/uL (0.0-0.2); BASO % 0.7 % (0.0-2.0); HEMOGLOBIN 12.7 g/dL (12.0-18.0); MEAN CELL VOLUME 92.8 fL (80.0-94.0); MEAN CORPUSCULAR HEMOGLOBIN 30.3 pg (27.0-31.0); MEAN CORPUSCULAR HGB CONC 32.7 g/dL (33.0-37.0); MEAN PLATELET VOLUME 8.4 fL (7.2-11.7); MONO # 0.8 K/uL (0.0-0.8); MONO % 8.5 % (0.0-10.0); NEUT # 7.3 K/uL (1.8-7.0); NEUT % 75.5 % (50.0-75.0); RBC 4.19 Mil/uL (4.40-5.90); WHITE BLOOD COUNT 9.6 K/uL (4.8-10.8)
--- NOTE | 2019-01-21 06:40 | CP.PCM.PN ---
Subjective - Date & Time of Evaluation Date of Evaluation: 01/20/19 Time of Evaluation: 20:15 - Subjective Subjective: Patient seen and evaluated Chest pain free Episode of chest pain in the morning Review of Systems - Constitutional Constitutional: Daytime Sleepiness. absent: Chills, Headache, Weight Gain, Weight Loss - EENT Eyes: absent: Blurred Vision, Change in Vision - Cardiovascular Cardiovascular: absent: Chest Pain, Chest Pain at Rest, Dyspnea - Respiratory Respiratory: absent: Cough, Dyspnea, Dyspnea on Exertion - Gastrointestinal Gastrointestinal: absent: Bloating, Constipation, Diarrhea - Genitourinary Genitourinary: absent: Change in Urinary Stream, Difficulty Urinating - Musculoskeletal Musculoskeletal: absent: Arthralgias, Joint Swelling - Integumentary Integumentary: Swelling Additional comments: b/l lower extremity swelling - Neurological Neurological: absent: Disequilibrium, Headaches - Psychiatric Psychiatric: absent: Anxiety, Change in Appetite - Endocrine Endocrine: absent: Change in Body Appearance, Deepening of Voice - Hematologic/Lymphatic Hematologic: absent: As Per HPI, Easy Bleeding, Easy Bruising Objective - Vital Signs/Intake and Output Vital Signs (last 24 hours): Temp Pulse Resp BP Pulse Ox 98.3 F 86 20 139/67 96 01/21/19 02:20 01/21/19 02:20 01/21/19 02:20 01/21/19 02:20 01/21/19 02:20 Intake and Output: 01/20/19 01/21/19 18:59 06:59 Intake Total 250 300 Balance 250 300 - Medications Medications: Current Medications Aspirin (Aspirin Chewable) 81 mg PO DAILY [facility] Last Admin: 01/20/19 09:46 Dose: 81 mg Dextrose (Glutose 15) 0 gm PO ONCE PRN; Protocol PRN Reason: Hypoglycemia Protocol Dextrose (Dextrose 50% Inj) 0 ml IV STAT PRN; Protocol PRN Reason: Hypoglycemia Protocol Enoxaparin Sodium (Lovenox) 40 mg SC DAILY [facility] Fluocinonide (Lidex 0.05% Cream) 0 gm TOP BID [facility] Last Admin: 01/20/19 18:04 Dose: 1 applic Furosemide (Lasix) 40 mg PO DAILY [facility] Last Admin: 01/20/19 09:45 Dose: 40 mg Glucagon (Glucagen Diagnostic Kit) 0 mg IM STAT PRN; Protocol PRN Reason: Hypoglycemia Protocol Dextrose (Dextrose 5% In Water 1000 Ml) 1,000 mls @ 0 mls/hr IV .Q0M PRN; Protocol PRN Reason: Hypoglycemia Protocol Insulin Aspart (Novolog) 0 unit SC ACHS [facility]; Protocol Last Admin: 01/20/19 22:28 Dose: Not Given Isosorbide Mononitrate (Imdur Er) 30 mg PO DAILY [facility] Lisinopril (Zestril) 2.5 mg PO DAILY [facility] Last Admin: 01/20/19 12:09 Dose: 2.5 mg Metoprolol Tartrate (Lopressor) 75 mg PO BID [facility] Last Admin: 01/20/19 18:01 Dose: Not Given Pantoprazole Sodium (Protonix Ec Tab) 40 mg PO DAILY [facility] Last Admin: 01/20/19 09:44 Dose: 40 mg Ranolazine (Ranexa) 500 mg PO BID [facility] Last Admin: 01/20/19 18:00 Dose: 500 mg Rosuvastatin Calcium (Crestor) 10 mg PO [facility] Last Admin: 01/20/19 22:29 Dose: 10 mg Ticagrelor (Brilinta) 90 mg PO BID [facility] Last Admin: 01/20/19 18:00 Dose: 90 mg - Labs Labs: 01/21/19 06:10 01/20/19 07:16 PT 11.5 SECONDS (9.7-12.2) 01/17/19 16:17 INR 1.1 01/17/19 16:17 APTT 67.0 SECONDS (21-34) H D 01/20/19 17:12 Assessment and Plan - Assessment and Plan (Free Text) Assessment: 63M w/ PMhx of CAD w/ stents, HTN, DM, presents to ED for chest pain, found to be NSTEMI Plan: NSTEMI CAD w/ stents - elevated troponin @ 0.160; ekg: sinus tachy @ 104, rbbb, left anterior fasicular, widen QRS - Heparin ggt - CTA 01/17: No evidence of acute central pulmonary embolus. Cardiomegaly. Minor passive/dependent type atelectasis both posterior lung bases. - Continue to trend trops Meds -Heparin ggt Sleep Apnea - O2 Sat 92% on NC 3LPM, obese gentleman w/ loud snoring - Bipap @ night time 12/6 Fio2 40% - Pulnorris, Dr. Smith --Sleep study as outpatient. CPAP at night of 10 cm water --Diureticss --Cardio workup --Smoking cessation. Diuretics. Cardiac workup. 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
[2019-01-21 06:42] LABS: ALB/GLOB RATIO 1.3 (1.0-2.1); ALBUMIN 3.8 g/dL (3.5-5.0); ALT/SGPT 32 U/L (21-72); AST/SGOT 32 U/L (17-59); BLOOD UREA NITROGEN 19 mg/dL (9-20); CALCIUM 8.7 mg/dl (8.6-10.4); GFR NON-AFRICAN AMERICAN > 60
[2019-01-21 07:52] VITALS: PULSE 89; TEMP 97.6; O2SAT 98
[2019-01-21] MEDS: (Novolog) Insulin Aspart, Recombinant 100 u/ml 10 ml vial SC SCH ×2 (07:56→12:20)
--- NOTE | 2019-01-21 09:08 | CP.PCM.PN ---
Subjective - Date & Time of Evaluation Date of Evaluation: 01/21/19 Time of Evaluation: 09:51 - Subjective Subjective: PGY-[address] Blount Patient seen and examined at bedside. No acute events overnight. Patient tolerating CPAP at night. Off heparin ggt. No longer c/o chest pain. Denies shortness of breath, dizziness, palpitations, shoulder or jaw pain, nausea, vomiting. Objective - Vital Signs/Intake and Output Vital Signs (last 24 hours): Temp Pulse Resp BP Pulse Ox 97.6 F 89 20 143/88 98 01/21/19 07:51 01/21/19 07:51 01/21/19 07:51 01/21/19 07:51 01/21/19 07:51 Intake and Output: 01/21/19 01/21/19 06:59 18:59 Intake Total 300 Balance 300 - Medications Medications: Current Medications Aspirin (Aspirin Chewable) 81 mg PO DAILY [facility] Last Admin: 01/20/19 09:46 Dose: 81 mg Dextrose (Glutose 15) 0 gm PO ONCE PRN; Protocol PRN Reason: Hypoglycemia Protocol Dextrose (Dextrose 50% Inj) 0 ml IV STAT PRN; Protocol PRN Reason: Hypoglycemia Protocol Enoxaparin Sodium (Lovenox) 40 mg SC DAILY [facility] Fluocinonide (Lidex 0.05% Cream) 0 gm TOP BID [facility] Last Admin: 01/20/19 18:04 Dose: 1 applic Furosemide (Lasix) 40 mg PO DAILY [facility] Last Admin: 01/20/19 09:45 Dose: 40 mg Glucagon (Glucagen Diagnostic Kit) 0 mg IM STAT PRN; Protocol PRN Reason: Hypoglycemia Protocol Dextrose (Dextrose 5% In Water 1000 Ml) 1,000 mls @ 0 mls/hr IV .Q0M PRN; Protocol PRN Reason: Hypoglycemia Protocol Insulin Aspart (Novolog) 0 unit SC ACHS [facility]; Protocol Last Admin: 01/21/19 07:56 Dose: Not Given Isosorbide Mononitrate (Imdur Er) 30 mg PO DAILY [facility] Lisinopril (Zestril) 2.5 mg PO DAILY [facility] Last Admin: 01/20/19 12:09 Dose: 2.5 mg Metoprolol Tartrate (Lopressor) 75 mg PO BID [facility] Last Admin: 01/20/19 18:01 Dose: Not Given Pantoprazole Sodium (Protonix Ec Tab) 40 mg PO DAILY [facility] Last Admin: 01/20/19 09:44 Dose: 40 mg Ranolazine (Ranexa) 500 mg PO BID [facility] Last Admin: 01/20/19 18:00 Dose: 500 mg Rosuvastatin Calcium (Crestor) 10 mg PO HS [facility] Last Admin: 01/20/19 22:29 Dose: 10 mg Ticagrelor (Brilinta) 90 mg PO BID [facility] Last Admin: 01/20/19 18:00 Dose: 90 mg - Labs Labs: 01/21/19 06:10 01/21/19 06:10 PT 11.5 SECONDS (9.7-12.2) 01/17/19 16:17 INR 1.1 01/17/19 16:17 APTT 67.0 SECONDS (21-34) H D 01/20/19 17:12 - Constitutional Appears: Non-toxic, No Acute Distress - Head Exam Head Exam: ATRAUMATIC, NORMOCEPHALIC - Eye Exam Eye Exam: EOMI, Normal appearance - ENT Exam ENT Exam: Mucous Membranes Moist - Respiratory Exam Respiratory Exam: Clear to Ausculation Bilateral. absent: Rales, Rhonchi, Wheezes - Cardiovascular Exam Cardiovascular Exam: REGULAR RHYTHM, +S1, +S2 - GI/Abdominal Exam GI & Abdominal Exam: Soft, Normal Bowel Sounds. absent: Tenderness - Extremities Exam Extremities Exam: absent: Pedal Edema, Tenderness - Neurological Exam Neurological Exam: Alert, Awake, Oriented x3 - Skin Skin Exam: Dry, Intact Assessment and Plan - Assessment and Plan (Free Text) Assessment: 63M w/ PMhx of CAD w/ stents, HTN, DM, presents to ED for chest pain, found to be NSTEMI. Trending trops while patient on heparin ggt. Patient no longer symptomatic but trops remain mildly elevated. Plan: NSTEMI CAD w/ stents - elevated troponin @ 0.160; ekg: sinus tachy @ 104, rbbb, left anterior fasicular, widen QRS - D/c Heparin drip --> SC Lovenox 40 mg daily - CTA 01/17: No evidence of acute central pulmonary embolus. Cardiomegaly. Minor passive/dependent type atelectasis both posterior lung bases. - Dr. Sudheer Christopher - Echo 01/17: Mild to moderate aortic stenosis. EF is within the normal range. Otherwise normal doppler. - UDS negative - Continue to trend trops --> .72, trending down but remains elevated - CKMB Normalized Meds -Lovenox SC 40 mg daily -Imdur 30 mg PO daily -Ranexa 30 mg PO daily Sleep Apnea - O2 Sat 92% on NC 3LPM, obese gentleman w/ loud snoring - Bipap @ night time 12/6 Fio2 40% - Pulm, Dr. Smith --Sleep study as outpatient. CPAP at night of 10 cm water --Smoking cessation. Diuretics. Cardiac workup. Patient advised to quit smoking --TSH/free T4 WNL History of HTN - hold home medication metoprolol 100 mg BID until UDS - Lasix 40 mg PO daily - Imdur 30 mg PO daily DM - Blood sugars 180s - HgA1C 7.6 - Accuchecks ACHS - Hypoglycemia protocol PPx DVT: on heparin drip for STEMI GI: Protonix 40 mg IVP daily Assessment and plan d/w Dr. Jose Alejandro Antonio, PGY-1
[2019-01-21] MEDS: Ranolazine 500 mg Extended Release Tablets PO SCH (09:41)
[2019-01-21] MEDS: Pantoprazole 40 mg EC Tab PO SCH (09:41)
[2019-01-21 09:42] VITALS: BP 144/78
[2019-01-21] MEDS ORDERED: Enoxaparin 40 mg Syringe SC SCH (10:00)
--- NOTE | 2019-01-21 11:49 | CP.PCM.DIS ---
<Rhett Antonio - Last Filed: 01/21/19 11:49> Provider - Provider Date of Admission: 01/17/19 16:58 Attending physician: Alphonse Blount MD Consults: 01/17/19 17:18 Cardiology Consult Routine Comment: Consulting Provider: Timmy Willard Consulting Physician: Timmy Willard Reason for Consult: nstemi 01/17/19 18:38 Pulmonology Consult Routine Comment: Consulting Provider: Benja Smith Consulting Physician: Benja Smith Reason for Consult: ? sleep apnea, CO2 rention, O2 sat 91 on [place] Time Spent in preparation of Discharge (in minutes): 45 Diagnosis - Discharge Diagnosis (1) NSTEMI (non-ST elevated myocardial infarction) Status: Acute Hospital Course - Lab Results Lab Results: Most Recent Lab Values WBC 9.6 K/uL (4.8-10.8) 01/21/19 06:10 RBC 4.19 Mil/uL (4.40-5.90) L 01/21/19 06:10 Hgb 12.7 g/dL (12.0-18.0) 01/21/19 06:10 Hct 38.8 % (35.0-51.0) 01/21/19 06:10 MCV 92.8 fL (80.0-94.0) 01/21/19 06:10 MCH 30.3 pg (27.0-31.0) 01/21/19 06:10 MCHC 32.7 g/dL (33.0-37.0) L 01/21/19 06:10 RDW 15.0 % (11.5-14.5) H 01/21/19 06:10 Plt Count 217 K/uL (130-400) 01/21/19 06:10 MPV 8.4 fL (7.2-11.7) 01/21/19 06:10 Neut % (Auto) 75.5 % (50.0-75.0) H 01/21/19 06:10 Lymph % (Auto) 13.3 % (20.0-40.0) L 01/21/19 06:10 Gordon % (Auto) 8.5 % (0.0-10.0) 01/21/19 06:10 Eos % (Auto) 2.0 % (0.0-4.0) 01/21/19 06:10 Baso % (Auto) 0.7 % (0.0-2.0) 01/21/19 06:10 Neut # (Auto) 7.3 K/uL (1.8-7.0) H 01/21/19 06:10 Lymph # (Auto) 1.3 K/uL (1.0-4.3) 01/21/19 06:10 Gordon # (Auto) 0.8 K/uL (0.0-0.8) 01/21/19 06:10 Eos # (Auto) 0.2 K/uL (0.0-0.7) 01/21/19 06:10 Baso # (Auto) 0.1 K/uL (0.0-0.2) 01/21/19 06:10 PT 11.5 SECONDS (9.7-12.2) 01/17/19 16:17 INR 1.1 01/17/19 16:17 APTT 67.0 SECONDS (21-34) H D 01/20/19 17:12 Puncture Site Lr 01/17/19 18:04 pCO2 46 mm/Hg (35-45) H 01/17/19 18:04 pO2 107 mm/Hg (80-100) H 01/17/19 18:04 HCO3 29.1 mmol/L (21-28) H 01/17/19 18:04 ABG pH 7.43 (7.35-7.45) 01/17/19 18:04 ABG Total CO2 31.9 mmol/L (22-28) H 01/17/19 18:04 ABG O2 Saturation 98.8 % (95-98) H 01/17/19 18:04 ABG Base Excess 5.3 mmol/L (-2.0-3.0) H 01/17/19 18:04 Janusz Test Po 01/17/19 18:04 ABG Potassium 3.0 mmol/L (3.6-5.2) L 01/17/19 18:04 A-a O2 Difference 35.0 mm/Hg 01/17/19 18:04 Respiratory Index 0.3 01/17/19 18:04 Sodium 136.0 mmol/l (132-148) 01/17/19 18:04 Chloride 102.0 mmol/L (98-107) 01/17/19 18:04 Glucose 211 mg/dl (75-110) H 01/17/19 18:04 Lactate 1.7 mmol/L (0.7-2.1) 01/17/19 18:04 Liter Flow 2.0 01/17/19 18:04 FiO2 28.0 % 01/17/19 18:04 Sodium 137 mmol/L (132-148) 01/21/19 06:10 Potassium 3.8 mmol/L (3.6-5.2) 01/21/19 06:10 Chloride 101 mmol/L (98-107) 01/21/19 06:10 Carbon Dioxide 28 mmol/L (22-30) 01/21/19 06:10 Anion Gap 12 (10-20) 01/21/19 06:10 BUN 19 mg/dL (9-20) 01/21/19 06:10 Creatinine 0.8 mg/dL (0.8-1.5) 01/21/19 06:10 Est GFR ( Amer) > 60 01/21/19 06:10 Est GFR (Non-Af Amer) > 60 01/21/19 06:10 POC Glucose (mg/dL) 207 mg/dL (65-110) H 01/21/19 10:26 Random Glucose 128 mg/dL (75-110) H 01/21/19 06:10 Hemoglobin A1c 7.6 % (4.2-6.5) H 01/18/19 07:09 Calcium 8.7 mg/dl (8.6-10.4) 01/21/19 06:10 Phosphorus 3.2 mg/dL (2.5-4.5) 01/21/19 06:10 Magnesium 1.9 mg/dL (1.6-2.3) 01/21/19 06:10 Total Bilirubin 1.2 mg/dL (0.2-1.3) 01/21/19 06:10 AST 32 U/L (17-59) 01/21/19 06:10 ALT 32 U/L (21-72) 01/21/19 06:10 Alkaline Phosphatase 69 U/L (38-126) 01/21/19 06:10 Total Creatine Kinase 53 U/L (55-170) L 01/21/19 06:10 CK-MB (Mass) 1.20 ng/mL (0.0-3.38) 01/21/19 06:10 Troponin I 0.7240 ng/mL (0.00-0.120) H* 01/21/19 06:10 NT-Pro-B Natriuret Pep 857 pg/mL (0-900) 01/17/19 16:17 Total Protein 6.7 g/dL (6.3-8.3) 01/21/19 06:10 Albumin 3.8 g/dL (3.5-5.0) 01/21/19 06:10 Globulin 2.9 gm/dL (2.2-3.9) 01/21/19 06:10 Albumin/Globulin Ratio 1.3 (1.0-2.1) 01/21/19 06:10 Triglycerides 113 mg/dL (0-149) 01/18/19 07:09 Cholesterol 157 mg/dL (0-199) 01/18/19 07:09 LDL Cholesterol Direct 112 mg/dL (0-129) 01/18/19 07:09 HDL Cholesterol 31 mg/dL (30-70) 01/18/19 07:09 Free T4 1.02 ng/dL (0.78-2.19) 01/18/19 07:09 TSH 3rd Generation 0.78 mIU/L (0.46-4.68) 01/18/19 07:09 Arterial Blood Potassium 3.0 mmol/L (3.6-5.2) L 01/17/19 18:04 Urine Opiates Screen Negative (NEGATIVE) 01/17/19 18:02 Urine Methadone Screen Negative (NEGATIVE) 01/17/19 18:02 Ur Barbiturates Screen Negative (NEGATIVE) 01/17/19 18:02 Ur Phencyclidine Scrn Negative (NEGATIVE) 01/17/19 18:02 Ur Amphetamines Screen Negative (NEGATIVE) 01/17/19 18:02 U Benzodiazepines Scrn Negative (NEGATIVE) 01/17/19 18:02 U Oth Cocaine Metabols Negative (NEGATIVE) 01/17/19 18:02 U Cannabinoids Screen Negative (NEGATIVE) 01/17/19 18:02 - Hospital Course Hospital Course: HPI 63 year old male with PMhx of CAD w/ stents (May 2018 & September 2018), HTN, DM, arthritis presents to ED for chest pain. Pt states he was sitting this morning when he developed pins/needle like chest pain on left side that radiated to left arm, rated 5/10, denies nausea, vomiting, SOB at that time. Pt called EMS, had 1 sublingual nitro with resolution of chest pain. Per ED note and pt cardioloist at [facility] Dr. Calderon, patient has been in several EDs for similar chest pain over the past year with elevated troponins, significantly more elevated than 0.16 currently and has had clean coronaries several times. At time of examination pt reports resolution of chest pain and just states for the last two days hes been just feeling sleep majority of the time. Pt reports compliance with medications and denies illicet drug use. Pt reports normal sleep test a few years. Denies recent travel, reports having a cold like symptoms 2 weeks ago. Hospital Course Patient with history CAD with 2 stents placed in the past was hospitalized for anginal-type chest pain and found to have NSTEMI. Patient was started on heparin drip and cardiac enzymes trended. Cardiology was consulted, Dr. Willard. Troponins remained elevated, however after by hospital day #5, CK-MB normalized. Patient was transitioned from heparin ggt to SC Lovenox. Per cardiology, patient was started on additional cardiac meds for angina. Patient started on Imdur and Ranexa, and taken off nitro SL. Continued on home Metoprolol. Echo during hospitalization was unremarkable. Patient also seen by pulmonology, Dr. Smith, for history PERRI. Recommended continue CPAP at night and f/u outpatient for sleep study. Patient was cleared by cardiology for discharge and discharged per primary team. Imaging: -CTA 01/17: No evidence of acute central pulmonary embolus. Cardiomegaly. Minor passive/dependent type atelectasis both posterior lung bases. This is only a summary of this hospitalization. For details please see complete medical records. Discharge Exam - Head Exam Head Exam: ATRAUMATIC, NORMOCEPHALIC - Eye Exam Eye Exam: EOMI, Normal appearance Pupil Exam: PERRL - Respiratory Exam Respiratory Exam: Clear to PA & Lateral, UNREMARKABLE. absent: Rhonchi, Wheezes - Cardiovascular Exam Cardiovascular Exam: REGULAR RHYTHM, +S1, +S2 - GI/Abdominal Exam GI & Abdominal Exam: Normal Bowel Sounds, Soft. absent: Tenderness - Extremities Exam Extremities exam: normal inspection - Neurological Exam Neurological exam: Alert, CN II-XII Intact, Oriented x3 - Psychiatric Exam Psychiatric exam: Normal Affect, Normal Mood - Skin Skin Exam: Dry, Intact Discharge Plan - Discharge Medications Prescriptions: Furosemide [Lasix] 40 mg PO DAILY #30 tab Isosorbide Mononitrate ER [Imdur ER] 30 mg PO DAILY #30 tab Lisinopril [Zestril] 2.5 mg PO DAILY #30 tab Metoprolol Succinate XL [Toprol XL] 100 mg PO DAILY #30 tab Ranolazine [Ranexa] 500 mg PO BID #60 ter Rosuvastatin Calcium [Crestor] 10 mg PO HS #30 tab Ticagrelor [Brilinta] 90 mg PO BID #60 tab - Follow Up Plan Condition: FAIR Disposition: HOME/ ROUTINE Instructions: Obesity, Adult, Type 2 Diabetes, High Blood Pressure in Adults, Heart Attack (DC), Chest Pain (DC) Additional Instructions: Patient is cleared for discharge per primary team Please continue to take the following heart medications, as some of your heart medications have been changed. -Lasix 40 mg one tab by mouth daily at 8am -Imdur 30 mg one tab by mouth daily at 8am -Lisinopril 2.5 mg one tab by mouth daily at 8am -Toprol XL 100 mg one tab by mouth daily at 8am -Ranexa 500 mg one tab by mouth twice a day at 8am and 8pm -Crestor 10 mg one tab by mouth daily at bedtime -Aspirin 90 mg one tab by mouth daily at 8am -Brilinta 90 mg one tab by mouth twice a day at 8am and 8pm Please continue to take your home Diabetes medications as prescribed by your primary doctor Please make sure to follow up with your program eligibility specialist Dr. Song Calderon within one week Please make sure also to follow up with your primary doctor Please return to ER if symptoms recur or worsen Referrals: Song Calderon III, MD [Non-Staff] - <Alphonse Blount - Last Filed: 01/21/19 13:01> Provider - Provider Date of Admission: 01/17/19 16:58 Attending physician: Alphonse Blount MD Consults: 01/17/19 17:18 Cardiology Consult Routine Comment: Consulting Provider: Timmy Willard Consulting Physician: Timmy Willard Reason for Consult: nstemi 01/17/19 18:38 Pulmonology Consult Routine Comment: Consulting Provider: Benja Smith Consulting Physician: Benja Smith Reason for Consult: ? sleep apnea, CO2 rention, O2 sat 91 on [facility] Course - Lab Results Lab Results: Most Recent Lab Values WBC 9.6 K/uL (4.8-10.8) 01/21/19 06:10 RBC 4.19 Mil/uL (4.40-5.90) L 01/21/19 06:10 Hgb 12.7 g/dL (12.0-18.0) 01/21/19 06:10 Hct 38.8 % (35.0-51.0) 01/21/19 06:10 MCV 92.8 fL (80.0-94.0) 01/21/19 06:10 MCH 30.3 pg (27.0-31.0) 01/21/19 06:10 MCHC 32.7 g/dL (33.0-37.0) L 01/21/19 06:10 RDW 15.0 % (11.5-14.5) H 01/21/19 06:10 Plt Count 217 K/uL (130-400) 01/21/19 06:10 MPV 8.4 fL (7.2-11.7) 01/21/19 06:10 Neut % (Auto) 75.5 % (50.0-75.0) H 01/21/19 06:10 Lymph % (Auto) 13.3 % (20.0-40.0) L 01/21/19 06:10 Gordon % (Auto) 8.5 % (0.0-10.0) 01/21/19 06:10 Eos % (Auto) 2.0 % (0.0-4.0) 01/21/19 06:10 Baso % (Auto) 0.7 % (0.0-2.0) 01/21/19 06:10 Neut # (Auto) 7.3 K/uL (1.8-7.0) H 01/21/19 06:10 Lymph # (Auto) 1.3 K/uL (1.0-4.3) 01/21/19 06:10 Gordon # (Auto) 0.8 K/uL (0.0-0.8) 01/21/19 06:10 Eos # (Auto) 0.2 K/uL (0.0-0.7) 01/21/19 06:10 Baso # (Auto) 0.1 K/uL (0.0-0.2) 01/21/19 06:10 PT 11.5 SECONDS (9.7-12.2) 01/17/19 16:17 INR 1.1 01/17/19 16:17 APTT 67.0 SECONDS (21-34) H D 01/20/19 17:12 Puncture Site Lr 01/17/19 18:04 pCO2 46 mm/Hg (35-45) H 01/17/19 18:04 pO2 107 mm/Hg (80-100) H 01/17/19 18:04 HCO3 29.1 mmol/L (21-28) H 01/17/19 18:04 ABG pH 7.43 (7.35-7.45) 01/17/19 18:04 ABG Total CO2 31.9 mmol/L (22-28) H 01/17/19 18:04 ABG O2 Saturation 98.8 % (95-98) H 01/17/19 18:04 ABG Base Excess 5.3 mmol/L (-2.0-3.0) H 01/17/19 18:04 Janusz Test Po 01/17/19 18:04 ABG Potassium 3.0 mmol/L (3.6-5.2) L 01/17/19 18:04 A-a O2 Difference 35.0 mm/Hg 01/17/19 18:04 Respiratory Index 0.3 01/17/19 18:04 Sodium 136.0 mmol/l (132-148) 01/17/19 18:04 Chloride 102.0 mmol/L (98-107) 01/17/19 18:04 Glucose 211 mg/dl (75-110) H 01/17/19 18:04 Lactate 1.7 mmol/L (0.7-2.1) 01/17/19 18:04 Liter Flow 2.0 01/17/19 18:04 FiO2 28.0 % 01/17/19 18:04 Sodium 137 mmol/L (132-148) 01/21/19 06:10 Potassium 3.8 mmol/L (3.6-5.2) 01/21/19 06:10 Chloride 101 mmol/L (98-107) 01/21/19 06:10 Carbon Dioxide 28 mmol/L (22-30) 01/21/19 06:10 Anion Gap 12 (10-20) 01/21/19 06:10 BUN 19 mg/dL (9-20) 01/21/19 06:10 Creatinine 0.8 mg/dL (0.8-1.5) 01/21/19 06:10 Est GFR ( Amer) > 60 01/21/19 06:10 Est GFR (Non-Af Amer) > 60 01/21/19 06:10 POC Glucose (mg/dL) 207 mg/dL (65-110) H 01/21/19 10:26 Random Glucose 128 mg/dL (75-110) H 01/21/19 06:10 Hemoglobin A1c 7.6 % (4.2-6.5) H 01/18/19 07:09 Calcium 8.7 mg/dl (8.6-10.4) 01/21/19 06:10 Phosphorus 3.2 mg/dL (2.5-4.5) 01/21/19 06:10 Magnesium 1.9 mg/dL (1.6-2.3) 01/21/19 06:10 Total Bilirubin 1.2 mg/dL (0.2-1.3) 01/21/19 06:10 AST 32 U/L (17-59) 01/21/19 06:10 ALT 32 U/L (21-72) 01/21/19 06:10 Alkaline Phosphatase 69 U/L (38-126) 01/21/19 06:10 Total Creatine Kinase 53 U/L (55-170) L 01/21/19 06:10 CK-MB (Mass) 1.20 ng/mL (0.0-3.38) 01/21/19 06:10 Troponin I 0.7240 ng/mL (0.00-0.120) H* 01/21/19 06:10 NT-Pro-B Natriuret Pep 857 pg/mL (0-900) 01/17/19 16:17 Total Protein 6.7 g/dL (6.3-8.3) 01/21/19 06:10 Albumin 3.8 g/dL (3.5-5.0) 01/21/19 06:10 Globulin 2.9 gm/dL (2.2-3.9) 01/21/19 06:10 Albumin/Globulin Ratio 1.3 (1.0-2.1) 01/21/19 06:10 Triglycerides 113 mg/dL (0-149) 01/18/19 07:09 Cholesterol 157 mg/dL (0-199) 01/18/19 07:09 LDL Cholesterol Direct 112 mg/dL (0-129) 01/18/19 07:09 HDL Cholesterol 31 mg/dL (30-70) 01/18/19 07:09 Free T4 1.02 ng/dL (0.78-2.19) 01/18/19 07:09 TSH 3rd Generation 0.78 mIU/L (0.46-4.68) 01/18/19 07:09 Arterial Blood Potassium 3.0 mmol/L (3.6-5.2) L 01/17/19 18:04 Urine Opiates Screen Negative (NEGATIVE) 01/17/19 18:02 Urine Methadone Screen Negative (NEGATIVE) 01/17/19 18:02 Ur Barbiturates Screen Negative (NEGATIVE) 01/17/19 18:02 Ur Phencyclidine Scrn Negative (NEGATIVE) 01/17/19 18:02 Ur Amphetamines Screen Negative (NEGATIVE) 01/17/19 18:02 U Benzodiazepines Scrn Negative (NEGATIVE) 01/17/19 18:02 U Oth Cocaine Metabols Negative (NEGATIVE) 01/17/19 18:02 U Cannabinoids Screen Negative (NEGATIVE) 01/17/19 18:02 Attending/Attestation - Attestation I have personally seen and examined this patient.: Yes I have fully participated in the care of the patient.: Yes I have reviewed all pertinent clinical information, including history, physical exam and plan: Yes Notes (Text): Denies chest pain,discharge plan discussed with the pt. Recommend to loose weight continue medication as prescribed,follow your program eligibility specialist
== END 2019-01-21 13:00 | disposition home or self-care (01) | DRG 282 ==
LOC: C.ER 15:40 → C.9E 16:58 → C.5S 22:59
PROVIDERS: ADMIT Internal Medicine; ATTEND Internal Medicine
DX: I21.4 Non-ST elevation (NSTEMI) myocardial infarction (principal); I25.10 Atherosclerotic heart disease of native coronary artery without angina pectoris; I25.2 Old myocardial infarction; I87.2 Venous insufficiency (chronic) (peripheral); Z95.5 Presence of coronary angioplasty implant and graft; M19.90 Unspecified osteoarthritis, unspecified site; E11.9 Type 2 diabetes mellitus without complications; E66.9 Obesity, unspecified; F17.210 Nicotine dependence, cigarettes, uncomplicated; I10 Essential (primary) hypertension; M79.89 Other specified soft tissue disorders; G47.33 Obstructive sleep apnea (adult) (pediatric); Z79.4 Long term (current) use of insulin